=== PATIENT | female | born 1925 | race Caucasian/White ===

== ENCOUNTER 2016-08-20 15:16 | Inpatient (IN) ==
[2016-08-20 15:56] LABS: Basophils % 0.2 % (0.0-0.8); Eosinophils # 0.3 10*3/uL (0.0-0.87); Eosinophils % 2.4 % (0.00-10.9); Hematocrit 39.1 VOL% (35.7-47.0); Hemoglobin 12.3 GM/DL (12.0-16.0); Immature Granulocytes % 0.4 %; Immature Granulocytes Absolute 0.05 #; Lymphocytes # 2.6 10*3/uL (1.4-4.0); Lymphocytes % 20.6 % (21.3-54.2); Mean Corpuscular HGB Conc 31.5 GM/DL (32-36); Mean Corpuscular Hemoglobin 27 PG (27-34); Mean Corpuscular Volume 84.6 FL (87-102); Mean Platelet Volume 9.9 FL (9.6-12.0); Monocytes % 7.5 % (1.7-12.7); Neutrophils # 8.7 10*3/uL (1.4-7.4); Neutrophils % 68.9 % (38.7-73.9); Platelet Count 266 T/CUMM (130-400); Red Blood Count 4.62 MC/CUMM (3.8-5.5); Red Cell Distribution Width 15.6 % (9.3-17.3); White Blood Count 12.6 T/CUMM (4-12)
--- NOTE | 2016-08-20 16:06 | CT Report ---
Referring physician: Rob Sweet Exam: CT brain without contrast Date: 01/01/2017 Comparison: 06/09/2016 Reason: Weakness, head injury with recent fall Technique: Axial images of the head were obtained without the use of contrast. Total DLP was 1012.10 mGy*cm. Findings: The ventricles remain diffusely dilated with no midline displacement. Persistent atrophy and diffuse cerebral hypodensities. Chronic right basal ganglia and left cerebellar infarcts. No acute infarction, mass, extracerebral collection, or skull pathology identified. Vascular calcifications are noted with postoperative findings in the globes. Mastoid air cells and visualized paranasal sinuses are clear. Impression: No acute intracranial abnormality is identified. Persistent atrophy, microvascular disease, and chronic infarcts. The CT exam was performed using one or more of the following dose reduction techniques: Automated exposure control and adjustment of the mA and/or kV according to patient size. PROCEDURE INTERPRETED AT [facility] DEPARTMENT OF RADIOLOGY Final Report Signed by: Dr. Montse Kessler
--- NOTE | 2016-08-20 16:14 | XRay Report ---
XR chest 1V portable Indication: Cough and shortness of breath. Chest one view: Comparison 04/28/2016. Increasing interstitial prominence of the lungs noted, likely edema. No focal infiltrate seen. Chronic scarring left perihilar lung and both lung bases is stable. Heart size remains normal with continued thoracic aortic tortuosity. Calcified atheromatous disease and epidural stimulator are stable as well. Impression: Fluid overload. PROCEDURE INTERPRETED AT [facility] DEPARTMENT OF RADIOLOGY Final Report Signed by: Stuart Spicer M.D.
[2016-08-20 16:24] LABS: Albumin 3.2 G/DL (3.4-5.0); Bilirubin,Direct 0.2 MG/DL (0.0-0.20); Bilirubin,Indirect 0.7 MG/DL (0.0-1.0); Bilirubin,Total 0.9 MG/DL (0.2-1.0); Calcium 8.4 MG/DL (8.5-10.1); Magnesium 2.5 MG/DL (1.8-2.4); Osmolality,Calculated 284.3 MOS/KG (273-304); Potassium 3.4 MMOL/L (3.5-5.1); Total Protein 7.1 G/DL (6.4-8.3); Troponin I Only 0.017 NG/ML (0.00-0.045)
[2016-08-20 16:39] LABS: Apearance,Urine CLOUDY (Clear); Bacteria,Urine Moderate /HPF (Few); Bilirubin,Urine Negative (Negative); Blood, Urine Negative (Negative); Glucose,Urine (UA) Negative (Negative); Ketones,Urine Negative (Negative); Nitrite,Urine Positive (Negative); Protein,Urine Negative; RBC,Urine 6 /HPF (0-4); Squamous Epithelial Cell,Urine Occasional /HPF (0-10); Urine Color Yellow (Yellow); Urine Specific Gravity 1.005 (1.001-1.035); Urine Urobilinogen < 2.0 EU/DL (0.2-1.0); WBC,Urine 950 /HPF (0-6)
[2016-08-20] MEDS ORDERED: cefTRIAXone 1,000 MG in SODIUM CHLORIDE 0.9% 100 ML IV STA (17:23)
[2016-08-20] MEDS ORDERED: FUROSEMIDE 20 MG/2 ML VIAL IV STA (17:23)
--- NOTE | 2016-08-20 17:31 | Emergency Department Note ---
IInes Brittany, am scribing for, and in the presence of, Rob Sweet M.D. 15:35. Micki Urban Howard T, M.D., personally performed the services described in this documentation, ascribed by Jackie Chacon in my presence, and it is both accurate and complete 729 . Arrival - Arrival Chief Complaint: Weakness Stated Complaint: generalized weakness Mode of Arrival: Stretcher Limitations: No Limitations Source: Patient - History of Present Illness HPI Narrative: This is an 89 y/o white female,who presents to the ED by EMS with c/o bilateral leg swelling. She is not able to tell us when this started to happen. She states she is a current resident of [facility] here in [place]. She reports both she and the staff were worried "something was not right with her". She denies any abdomen pain, vomiting, or dysuria. She reports she has had a cough and has been more SOB than normal but denies any CP. She reports she is on O2 Q.H.S. Pt's daughter also reports pt has been confused and generalized weak. Her daughter states pt has not been as ambulatory as she normally is lately. She states she is not on Lasix at this time. Pt has no other complaints/pain in the ED at this time. Pt has a PMHx of CVA, COPD, thyroid disorder, anemia, peripheral neuropathy, and HTN. Pt denies a surgical Hx. Pt denies a family medical Hx. Pt is a former smoker. Onset (ago): unknown Consistency: constant Severity: moderate Allergies/Adverse Reactions: Allergies Allergy/AdvReac Type Severity Reaction Status Date / Time Sulfa (Sulfonamide Allergy Redness of Verified 04/28/16 12:47 Antibiotics) Skin Home Medications: Home Medications Medication Instructions Recorded Confirmed Type Betamethasone Linda 0.1% Cream 1 applic TOP DAILY PRN 04/28/16 06/09/16 History [Valisone 0.1% Cream] Carbidopa/Levodopa 1 each PO DAILY W/SUPPER 04/28/16 06/09/16 History [Carbidopa-Levodopa 25-100 Tab] Cetirizine Tab [ZyrTEC Tab] 10 mg PO DAILY 04/28/16 06/09/16 History Citalopram [CeleXA] 40 mg PO DAILY 04/28/16 06/09/16 History Clotrimazole 1% Cream [Lotrimin 1% 1 applic TOP DAILY PRN 04/28/16 06/09/16 History Cream] Docusate Sodium Cap [Colace Cap] 100 mg PO BID 04/28/16 06/09/16 History Ferrous Sulfate Tab [Feosol 325 mg PO DAILY 04/28/16 06/09/16 History Original Tab] Fluticasone 50 Mcg Nasal [place] 1 spray BOTH NARES BID 04/28/16 06/09/16 History [Flonase Nasal [place]] Gabapentin Cap/Tab [Neurontin 300 mg PO TID 04/28/16 06/09/16 History Cap/Tab] Levothyroxine Tab [Synthroid Tab] 125 mcg PO DAILY@0700 04/28/16 06/09/16 History Meclizine [Antivert] 25 mg PO BID 04/28/16 06/09/16 History Neomyc/Polymyx/Dexam Oph Susp 1 drop BOTH EYES QID 04/28/16 06/09/16 History [Maxitrol Oph Susp] Omeprazole 20 mg PO DAILY 04/28/16 06/09/16 History Oxybutynin Chloride 10 mg PO BID 04/28/16 06/09/16 History Polyethylene Glycol Powder 17 gm PO DAILY 04/28/16 06/09/16 History [Miralax] Potassium Chloride 1 tablet PO BID 04/28/16 06/09/16 History Timolol Maleate [Timolol 0.5% Oph 1 drop BOTH EYES QAM 04/28/16 06/09/16 History Soln] Torsemide Tab [Demadex Tab] 20 mg PO DAILY W/SUPPER 04/28/16 06/09/16 History Trazodone HCl 50 mg PO BEDTIME 04/28/16 06/09/16 History Cyclobenzaprine HCl 10 mg PO BID 06/09/16 06/09/16 History [Cyclobenzaprine HCl] Indomethacin Cap [Indocin Cap] 25 mg PO TID #20 capsule 06/09/16 Rx guaiFENesin/CODEINE [Robitussin AC] 5 - 10 ml PO Q6H PRN 06/09/16 06/09/16 History predniSONE TAB [PredniSONE] 10 mg PO DAILY #10 tablet 06/09/16 Rx Review of System - Review of System 12 point system: reviewed and no additional remarkable complaints except as stated - Review of System Constitutional: Present: weakness (Generalized weaknesss) Cardiovascular: Absent: chest pain, dyspnea on exertion Gastrointestinal: Absent: vomiting, diarrhea Genitourinary female: Absent: dysuria Musculoskeletal: Present: other (Bilateral leg swelling ) Medical,Surgical,& Family Hx - Medical History Cardio: History of: Hypertension Neurology: History of: Cerebrovascular Accident, Peripheral Neuropathy HEENT: History of: HEENT Problems (allergic rhinitis) Endocrine: History of: Thyroid Disorder Respiratory: History of: COPD Hematology: History of: Anemia - Social History Smoking Status: Former smoker Exam Vital Signs: Vital Signs Temperature 98.7 F 08/20/16 15:17 Pulse Rate 87 08/20/16 15:17 Respiratory Rate 18 08/20/16 15:28 Blood Pressure 170/81 08/20/16 15:17 O2 Sat by Pulse Oximetry 90 L 08/20/16 15:17 - General General appearance: alert, in no apparent distress - Head Head exam: Present: atraumatic, normocephalic, normal inspection - Eye Eye exam: Present: normal appearance, PERRL, EOMI. Absent: nystagmus, miosis, mydriasis - ENT ENT exam: Present: normal exam, normal oropharynx, mucous membranes moist, TM's normal bilaterally - Neck Neck exam: Present: normal inspection, full ROM, trachea midline. Absent: tenderness, meningismus, lymphadenopathy, thyromegaly - Chest Chest inspection: Present: normal inspection, symmetric chest wall rise. Absent : tenderness, rash, abscess - Respiratory Respiratory exam: Present: other ("Sounded coarse"). Absent: rales, respiratory distress, rhonchi, stridor, wheezes - Cardiovascular Cardiovascular exam: Present: regular rate, normal rhythm, normal heart sounds. Absent: murmur, rubs, gallop, clicks - Abdominal Exam Abdominal exam: Present: soft, normal bowel sounds. Absent: distention, tenderness, guarding, rebound, rigidity - Rectal Exam Rectal exam: Present: deferred - Extremities Exam Extremities exam: Present: normal capillary refill, other (Significant swelling to the lower extremitites bilaterally) - Back Exam Back exam: Present: normal inspection, full ROM. Absent: tenderness, muscle spasm, rashes - Neurological Exam Neurological exam: Present: alert, oriented X3, CN II-XII intact. Absent: motor sensory deficit - Psychiatric Psychiatric exam: Present: normal affect, normal mood. Absent: depressed, agitated, anxious, flat affect, manic - Skin Skin exam: Present: warm, dry, intact, normal color. Absent: rash, cyanosis, diaphoresis, erythema, pallor, mottled Course Course Narrative: Medical decision making: Discussed with Dr. Carballo who is on-call for family medicine service who accepted the patient on behalf of Dr. Hogan who the patient and the family member state they plan to see going forward. The family desires swing bed placement for some physical therapy however they were informed this is not a guarantee. For now we will start some antibiotics for UTI, some Lasix for swelling in her lower extremities and some pulmonary edema, and further evaluation can be deferred to the medicine service, possibly with cardiology or pulm consult as needed Results - Labs CBC & BMP: 08/20/16 15:36 08/20/16 15:36 - Diagnostic Findings Procedure: Chest x-ray: report reviewed by me (Fluid overload), CT: report reviewed by me (Head CT: No aute intracranial abnormality is identified. Persistnet atrophy, microvascular disease, and chronic infarcts. ) Disposition Clinical Impression: UTI (urinary tract infection), Asthenia, Lower extremity edema, Pulmonary edema , COPD (chronic obstructive pulmonary disease), CHF (congestive heart failure) Case discussed with: patient, patient's family Disposition: Disch/Xfer-[facility] Term [facility] Condition: Stable Time of Disposition: 17:31
[2016-08-20] MEDS ORDERED: ONDANSETRON 4 MG/2 ML VIAL IV PRN (17:32)
[2016-08-20] MEDS ORDERED: ACETAMINOPHEN 325 MG TABLET PO PRN (17:32)
[2016-08-20] MEDS ORDERED: cefTRIAXone 1,000 MG VIAL ONE (17:35)
[2016-08-20] MEDS ORDERED: FUROSEMIDE 40 MG/4 ML VIAL ONE (17:35)
[2016-08-20] MEDS: DOCUSATE SODIUM 100 MG CAPSULE PO SCH (20:06)
[2016-08-21] MEDS: DOCUSATE SODIUM 100 MG CAPSULE PO SCH ×3 (09:08→21:03)
[2016-08-21] MEDS: PANTOPRAZOLE 40 MG TABLET PO SCH (09:08)
[2016-08-21] MEDS: DESITIN 4OZ/NYSTATIN 15 GRAM MIXTURE PASTE TOP SCH ×2 (13:38→22:38)
[2016-08-21] MEDS: NYSTATIN POWDER 15 GM BOTTLE TOP SCH ×2 (13:38→22:38)
--- NOTE | 2016-08-21 18:14 | Internal Med History&Physical ---
Assessment and Plan (1) COPD (chronic obstructive pulmonary disease) Status: Chronic Current Visit: Yes (2) Lower extremity edema Status: Chronic Current Visit: Yes (3) Pulmonary edema Status: Acute Current Visit: Yes Qualifiers: Chronicity: acute Qualified Code(s): J81.0 - Acute pulmonary edema (4) UTI (urinary tract infection) Status: Acute Current Visit: Yes Qualifiers: Hematuria presence: without hematuria History of Present Illness Chief complaint: malaise; fatigue History of present illness: Ms. Castillo is a 89 year old female patient of Dr. Cottrell with history of stroke , HTN, COPD, history of CHF episode, OA, dyslipidemia, who presented to ER with acute UTI and lower extremity wound sustained after a fall two weeks ago. She has had peripheral lymphedema over last several weeks. Dr. Robison will be consulted for wound care. Home Medications Medication Instructions Recorded Confirmed Type Betamethasone Linda 0.1% Cream 1 applic TOP DAILY PRN 04/28/16 06/09/16 History [Valisone 0.1% Cream] Carbidopa/Levodopa 1 each PO DAILY W/SUPPER 04/28/16 06/09/16 History [Carbidopa-Levodopa 25-100 Tab] Cetirizine Tab [ZyrTEC Tab] 10 mg PO DAILY 04/28/16 06/09/16 History Citalopram [CeleXA] 40 mg PO DAILY 04/28/16 06/09/16 History Clotrimazole 1% Cream [Lotrimin 1% 1 applic TOP DAILY PRN 04/28/16 06/09/16 History Cream] Docusate Sodium Cap [Colace Cap] 100 mg PO BID 04/28/16 06/09/16 History Ferrous Sulfate Tab [Feosol 325 mg PO DAILY 04/28/16 06/09/16 History Original Tab] Fluticasone 50 Mcg Nasal [place] 1 spray BOTH NARES BID 04/28/16 06/09/16 History [Flonase Nasal [place]] Gabapentin Cap/Tab [Neurontin 300 mg PO TID 04/28/16 06/09/16 History Cap/Tab] Levothyroxine Tab [Synthroid Tab] 125 mcg PO DAILY@0700 04/28/16 06/09/16 History Meclizine [Antivert] 25 mg PO BID 04/28/16 06/09/16 History Neomyc/Polymyx/Dexam Oph Susp 1 drop BOTH EYES QID 04/28/16 06/09/16 History [Maxitrol Oph Susp] Omeprazole 20 mg PO DAILY 04/28/16 06/09/16 History Oxybutynin Chloride 10 mg PO BID 04/28/16 06/09/16 History Polyethylene Glycol Powder 17 gm PO DAILY 04/28/16 06/09/16 History [Miralax] Potassium Chloride 1 tablet PO BID 04/28/16 06/09/16 History Timolol Maleate [Timolol 0.5% Oph 1 drop BOTH EYES QAM 04/28/16 06/09/16 History Soln] Torsemide Tab [Demadex Tab] 20 mg PO DAILY W/SUPPER 04/28/16 06/09/16 History Trazodone HCl 50 mg PO BEDTIME 04/28/16 06/09/16 History Cyclobenzaprine HCl 10 mg PO BID 06/09/16 06/09/16 History [Cyclobenzaprine HCl] Indomethacin Cap [Indocin Cap] 25 mg PO TID #20 capsule 06/09/16 Rx guaiFENesin/CODEINE [Robitussin AC] 5 - 10 ml PO Q6H PRN 06/09/16 06/09/16 History predniSONE TAB [PredniSONE] 10 mg PO DAILY #10 tablet 06/09/16 Rx Allergies Allergy/AdvReac Type Severity Reaction Status Date / Time Sulfa (Sulfonamide Allergy Redness of Verified 04/28/16 12:47 Antibiotics) Skin Medical,Surgical,& Family Hx - Medical History Cardio: History of: Cerebrovascular Disease, Hypertension Neurology: History of: Cerebrovascular Accident, Peripheral Neuropathy HEENT: History of: HEENT Problems (allergic rhinitis) Endocrine: History of: Thyroid Disorder Respiratory: History of: COPD Genitourinary: History of: Recurring Urinary Tract Infections Musculoskeletal: History of: Musculoskeletal Problems (osteoarthritis) Hematology: History of: Anemia - Surgical History Surgical History: noncontributory (no surgical history) - Family History Family History: noncontributory (unknown family history) - Social History Smoking Status: Former smoker Frequency of Alcohol Use: None Type of Drug Use: None Marital Status: Lives With:: Children Functional capacity: uses cane/walker - Constitutional Constitutional: Present: fatigue, frequent falls, lethargy, malaise, weakness - Musculoskeletal Musculoskeletal: Present: muscle weakness - Neurological Neurological: Present: confusion (with UTI) Exam - Constitutional Vitals: Period Temp Pulse Resp BP Sys/Collins Pulse Ox Last 24 Hr 97.1 F-98.5 F 74-79 18-18 154-163/67-82 91-96 General appearance: no acute distress - Head Head exam: Present: normocephalic - Eye Eye exam: Present: EOMI - Respiratory Respiratory exam: Present: clear to auscultation bilaterally - Cardiovascular Cardiovascular exam: Present: regular rate and rhythm - GI/Abdominal GI/Abdominal exam: Present: normal bowel sounds, soft. Absent: tenderness - Extremities Exam Extremities exam: Present: edema - Neurological Exam Neurological exam: Present: alert, CN II-XII intact - Psychiatric Psychiatric exam: Present: normal mood - Skin Skin exam: Present: warm, dry Results - Labs CBC & BMP: 08/20/16 15:36 08/20/16 15:36 - Diagnostic Findings Procedure: Chest x-ray: report reviewed by me, CT: report reviewed by me
[2016-08-21] MEDS ORDERED: SODIUM CHLORIDE 0.45% 1,000 ML IV SCH (18:30)
[2016-08-21] MEDS ORDERED: POTASSIUM CHLORIDE 20 MEQ TABLET PO ONE (18:30)
[2016-08-21] MEDS: ALBUTEROL/IPRATROPIUM 3 ML NEB RESP TX SCH (19:14)
[2016-08-21] MEDS: PIPERACILLIN/TAZOBACTAM 3,375 MG in SODIUM CHLORIDE 0.9% 100 ML IV SCH (19:51)
[2016-08-21 20:43] LABS: Apearance,Urine Slightly Hazy (Clear); Bacteria,Urine Occasional /HPF (Few); Bilirubin,Urine Negative (Negative); Blood, Urine Negative (Negative); Glucose,Urine (UA) Negative (Negative); Ketones,Urine Negative (Negative); Nitrite,Urine Negative (Negative); Protein,Urine Negative; RBC,Urine 1 /HPF (0-4); Squamous Epithelial Cell,Urine Occasional /HPF (0-10); Urine Color Yellow (Yellow); Urine Specific Gravity 1.009 (1.001-1.035); Urine Urobilinogen < 2.0 EU/DL (0.2-1.0); WBC,Urine 42 /HPF (0-6)
[2016-08-21] MEDS ORDERED: cloNIDine 0.1 MG TABLET PO SCH (21:00)
[2016-08-21] MEDS: traZODone 50 MG TABLET PO SCH (21:03)
[2016-08-21] MEDS: MECLIZINE 25 MG TABLET PO SCH (21:03)
[2016-08-21] MEDS: FLUTICASONE 50 MCG NASAL SPRAY 16 GM BOTTLE BOTH NARES SCH (22:38)
[2016-08-22] MEDS: ALBUTEROL/IPRATROPIUM 3 ML NEB RESP TX SCH ×4 (00:10→20:11)
[2016-08-22] MEDS: PIPERACILLIN/TAZOBACTAM 3,375 MG in SODIUM CHLORIDE 0.9% 100 ML IV SCH ×3 (03:00→19:23)
[2016-08-22 04:41] LABS: Basophils % 0.2 % (0.0-0.8); Eosinophils # 0.2 10*3/uL (0.0-0.87); Eosinophils % 2.4 % (0.00-10.9); Hemoglobin 11.3 GM/DL (12.0-16.0); Immature Granulocytes % 0.5 %; Immature Granulocytes Absolute 0.05 #; Lymphocytes # 2.2 10*3/uL (1.4-4.0); Lymphocytes % 22.1 % (21.3-54.2); Mean Corpuscular HGB Conc 30.5 GM/DL (32-36); Mean Corpuscular Hemoglobin 26 PG (27-34); Mean Corpuscular Volume 85.1 FL (87-102); Mean Platelet Volume 9.7 FL (9.6-12.0); Monocytes # 0.8 10*3/uL (0.11-0.8); Monocytes % 7.9 % (1.7-12.7); Neutrophils # 6.6 10*3/uL (1.4-7.4); Neutrophils % 66.9 % (38.7-73.9); Platelet Count 246 T/CUMM (130-400); Red Blood Count 4.35 MC/CUMM (3.8-5.5); Red Cell Distribution Width 15.3 % (9.3-17.3); White Blood Count 9.9 T/CUMM (4-12)
[2016-08-22 05:09] LABS: Albumin 2.6 G/DL (3.4-5.0); Bilirubin,Total 0.4 MG/DL (0.2-1.0); Calcium 8.2 MG/DL (8.5-10.1); Potassium 3.2 MMOL/L (3.5-5.1); Total Protein 6.1 G/DL (6.4-8.3)
--- NOTE | 2016-08-22 08:01 | General Surgery Consult Note ---
Assessment and Plan - Time spent with patient Time spent with patient: Less than 30 minutes (1) Traumatic abrasion Status: Acute Assessment and plan: Impression: 1. Traumatic wound of the left leg with hematoma 2. Urinary tract infection. Plan: Debridement with drainage of hematoma Current Visit: Yes History of Present Illness Chief complaint: Traumatic injury to the left leg with wound and hematoma History of present illness: Ms. Castillo is a 89 year old female white who apparently fell and sustained a traumatic wound to the left leg with a large open wound with some necrotic tissue around the edges of it. She came in for urinary tract infection although she is complained about some swelling in erythematous changes around this wound on her leg. There is some evidence that there is probably a little fluid collection or hematoma underneath this traumatic wound at this time. Will consider taking her to surgery to try to debride this little big clean it up and possibly evacuate a little hematoma that underneath there. Home Medications Medication Instructions Recorded Confirmed Type Betamethasone Linda 0.1% Cream 1 applic TOP DAILY PRN 04/28/16 06/09/16 History [Valisone 0.1% Cream] Carbidopa/Levodopa 1 each PO DAILY W/SUPPER 04/28/16 06/09/16 History [Carbidopa-Levodopa 25-100 Tab] Cetirizine Tab [ZyrTEC Tab] 10 mg PO DAILY 04/28/16 06/09/16 History Citalopram [CeleXA] 40 mg PO DAILY 04/28/16 06/09/16 History Clotrimazole 1% Cream [Lotrimin 1% 1 applic TOP DAILY PRN 04/28/16 06/09/16 History Cream] Docusate Sodium Cap [Colace Cap] 100 mg PO BID 04/28/16 06/09/16 History Ferrous Sulfate Tab [Feosol 325 mg PO DAILY 04/28/16 06/09/16 History Original Tab] Fluticasone 50 Mcg Nasal [place] 1 spray BOTH NARES BID 04/28/16 06/09/16 History [Flonase Nasal [place]] Gabapentin Cap/Tab [Neurontin 300 mg PO TID 04/28/16 06/09/16 History Cap/Tab] Levothyroxine Tab [Synthroid Tab] 125 mcg PO DAILY@0700 04/28/16 06/09/16 History Meclizine [Antivert] 25 mg PO BID 04/28/16 06/09/16 History Neomyc/Polymyx/Dexam Oph Susp 1 drop BOTH EYES QID 04/28/16 06/09/16 History [Maxitrol Oph Susp] Omeprazole 20 mg PO DAILY 04/28/16 06/09/16 History Oxybutynin Chloride 10 mg PO BID 04/28/16 06/09/16 History Polyethylene Glycol Powder 17 gm PO DAILY 04/28/16 06/09/16 History [Miralax] Potassium Chloride 1 tablet PO BID 04/28/16 06/09/16 History Timolol Maleate [Timolol 0.5% Oph 1 drop BOTH EYES QAM 04/28/16 06/09/16 History Soln] Torsemide Tab [Demadex Tab] 20 mg PO DAILY W/SUPPER 04/28/16 06/09/16 History Trazodone HCl 50 mg PO BEDTIME 04/28/16 06/09/16 History Cyclobenzaprine HCl 10 mg PO BID 06/09/16 06/09/16 History [Cyclobenzaprine HCl] Indomethacin Cap [Indocin Cap] 25 mg PO TID #20 capsule 06/09/16 Rx guaiFENesin/CODEINE [Robitussin AC] 5 - 10 ml PO Q6H PRN 06/09/16 06/09/16 History predniSONE TAB [PredniSONE] 10 mg PO DAILY #10 tablet 06/09/16 Rx Allergies Allergy/AdvReac Type Severity Reaction Status Date / Time Sulfa (Sulfonamide Allergy Redness of Verified 04/28/16 12:47 Antibiotics) Skin Medical,Surgical,& Family Hx - Medical History Cardio: History of: Cerebrovascular Disease, Hypertension Neurology: History of: Cerebrovascular Accident, Peripheral Neuropathy HEENT: History of: HEENT Problems (allergic rhinitis) Endocrine: History of: Thyroid Disorder Respiratory: History of: COPD Genitourinary: History of: Recurring Urinary Tract Infections Musculoskeletal: History of: Musculoskeletal Problems (osteoarthritis) Hematology: History of: Anemia - Social History Smoking Status: Former smoker Frequency of Alcohol Use: None Type of Drug Use: None 12 point system: reviewed and no additional remarkable complaints except as stated Exam - Constitutional Vitals: Period Temp Pulse Resp BP Sys/Collins Pulse Ox Last 24 Hr 97.1 F-98.2 F 75-81 16-20 148-163/72-85 93-99 General appearance: mild distress - Head Head exam: Present: normal inspection - ENT ENT exam: Present: normal exam - Neck Neck exam: Present: normal inspection - Respiratory Respiratory exam: Present: rales - Cardiovascular Cardiovascular exam: Present: RRR - GI/Abdominal GI/Abdominal exam: Present: normal bowel sounds, soft - Extremities Exam Extremities exam: Present: other (Mild edema of the left lower extremity with a wound on the anterior lateral aspect in the midportion that has necrotic fatty tissue and skin around the edges. Just medial to the wound is a swollen area of the little bit of erythema in this region.) - Back Exam Back exam: Present: normal inspection - Neurological Exam Neurological exam: Present: alert, oriented X3, CN II-XII intact - Skin Skin exam: Present: normal color, warm, dry Quality Measures - VTE Contraindication to Pharmacological VTE Prophylaxis: High Risk of Bleeding Results - Labs CBC & BMP: 08/22/16 04:25 08/22/16 04:25 Lab Results: I have reviewed the past 24 hour labs
[2016-08-22 08:33] LABS: PT Patient Result 10.9 SECS
[2016-08-22] MEDS ORDERED: amLODIPine 5 MG TABLET PO SCH (09:00)
--- NOTE | 2016-08-22 09:07 | EKG Report ---
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
[2016-08-22] MEDS: POTASSIUM CHLORIDE 20 MEQ TABLET PO SCH (09:18)
[2016-08-22] MEDS ORDERED: POTASSIUM CHLORIDE 20 MEQ TABLET PO ONE (10:39)
[2016-08-22] MEDS ORDERED: amLODIPine 10 MG TABLET PO SCH (10:42)
[2016-08-22] MEDS ORDERED: BUPIVACAINE MPF 0.25% /EPI 30 ML VIAL ONE (11:34)
[2016-08-22] MEDS ORDERED: BUPIVACAINE 0.25% 50 ML VIAL ONE (11:41)
[2016-08-22] MEDS ORDERED: HYDROmorphone 2 MG/1 ML VIAL IV PRN (12:07)
[2016-08-22] MEDS ORDERED: oxyCODONE/ACETAMINOPHEN 5-325 MG TABLET PO PRN (12:07)
--- NOTE | 2016-08-22 12:07 | Operative Note ---
Date of procedure: 08/22/16 Pre-op diagnosis: Traumatic wound of the left leg with hematoma Post-op diagnosis: same Procedure: Operative note: Preoperative diagnosis: Traumatic wound of the left leg with hematoma Postoperative diagnosis: Same Procedure: Excisional debridement of skin and necrotic subcutaneous tissue with evacuation of hematoma Surgeon Dr. Robison Anesthesia managed anesthetic care with local Brief history: 89-year-old white female who sustained a traumatic injury to the left leg several weeks ago now has an open wound with a hematoma at this time. Good bit of necrotic tissue over the surface and around the edges that we need to get cleaned up and see if we can evacuate the hematoma. Procedure: With patient in supine position prepped and draped in a sterile fashion timeout and antibiotics completed approaches area of the wound to the left leg. There is swelling on the medial aspect of the wound over the pretibial area with a good bit of necrotic tissue and necrotic fatty tissue on the base of the wound. The preop wound size is 9 x 2 cm x 0.1 cm At this point elected to infiltrate with a local anesthetic that I cleaned up around the edges of it getting some of the necrotic's material off the surface of the wound and the skin at this time. I then took scissors and debride the skin edge especially on the medial aspect and debrided this necrotic fatty tissue in the base carefully debrided that down then took a knife to some further dark necrotic tissue on the base of this wound to get it as clean as I could possibly get it. Once I had that cleaned that I was able to dissect underneath this area towards the medial aspect with a hematoma was at. Initially did get a lot out then when I applied pressure to it I was able to evacuate the hematoma almost completely. At that point I washed and irrigated and irrigated this wound out to get as clean as possible. Concerned that that fluid may build back up underneath that flap area elected to place 1/4 inch [place] drain and sutured down with 3-0 nylon just to have some drainage out of that cavity where the hematoma was at. With that completed then I went ahead and dressed it some SAF-Gel Mepitel and Aquacel with a bulky dressing. Patient was then taken recovery room. Post debridement wound measures 9.5 x 2.5 x 0.2 cm Estimated blood loss 5 cc Sponge count correct 2 Drains 1/4 inch [place] Complications none Condition stable satisfactory Anesthesia: MAC, local (0.25% Marcaine plain mixed [id number] 1% Xylocaine plain) Surgeon / Physician: Lg Robison Estimated blood loss: other (5 cc) Specimens: other (Cultures) Condition: stable Disposition: floor Results - Labs CBC & BMP: 08/22/16 04:25 08/22/16 04:25 Discharge Plan - Discharge Medications No Action Clotrimazole 1% Cream [Lotrimin 1% Cream] 1 applic TOP DAILY PRN PRN Reason: ANTIFUNGAL Betamethasone Linda 0.1% Cream [Valisone 0.1% Cream] 1 applic TOP DAILY PRN PRN Reason: Itching Trazodone HCl 50 mg PO BEDTIME Torsemide Tab [Demadex Tab] 20 mg PO DAILY W/SUPPER Potassium Chloride 1 tablet PO BID Polyethylene Glycol Powder [Miralax] 17 gm PO DAILY Oxybutynin Chloride 10 mg PO BID Neomyc/Polymyx/Dexam Oph Susp [Maxitrol Oph Susp] 1 drop BOTH EYES QID Meclizine [Antivert] 25 mg PO BID Levothyroxine Tab [Synthroid Tab] 125 mcg PO DAILY@0700 Gabapentin Cap/Tab [Neurontin Cap/Tab] 300 mg PO TID Ferrous Sulfate Tab [Feosol Original Tab] 325 mg PO DAILY Docusate Sodium Cap [Colace Cap] 100 mg PO BID Citalopram [CeleXA] 40 mg PO DAILY Cetirizine Tab [ZyrTEC Tab] 10 mg PO DAILY Carbidopa/Levodopa [Carbidopa-Levodopa 25-100 Tab] 1 each PO DAILY W/SUPPER guaiFENesin/CODEINE [Robitussin AC] 5 - 10 ml PO Q6H PRN PRN Reason: Cough Timolol Maleate [Timolol 0.5% Oph Soln] 1 drop BOTH EYES QAM Omeprazole 20 mg PO DAILY Fluticasone 50 Mcg Nasal [place] [Flonase Nasal [place]] 1 spray BOTH NARES BID Cyclobenzaprine HCl [Cyclobenzaprine HCl] 10 mg PO BID Indomethacin Cap [Indocin Cap] 25 mg PO TID #20 capsule predniSONE TAB [PredniSONE] 10 mg PO DAILY #10 tablet - Follow Up or Referral - Forms/Instructions
--- NOTE | 2016-08-22 12:11 | Anesthesia Post-Op ---
Anesthesia Post OP - Post Ansesthetic Evaluation Patient seen in post op: Yes Resp: within normal limits CV: within normal limits Mental: within normal limits Temp: within normal limits [id number]: within normal limits Nausea and Vomiting: within normal limits Pain: within normal limits
[2016-08-22] MEDS ORDERED: fentaNYL 100 MCG/2 ML VIAL ONE (12:18)
[2016-08-22] MEDS ORDERED: MIDAZOLAM 2 MG/2 ML VIAL ONE (12:18)
[2016-08-22] MEDS: LEVOTHYROXINE 125 MCG TABLET PO SCH (14:35)
[2016-08-22] MEDS: CITALOPRAM 40 MG TABLET PO SCH (14:36)
[2016-08-22] MEDS: POLYETHYLENE GLYCOL POWDER 17 GM PACK PO SCH (14:36)
[2016-08-22] MEDS: CETIRIZINE 10 MG TABLET PO SCH (14:37)
[2016-08-22] MEDS: DESITIN 4OZ/NYSTATIN 15 GRAM MIXTURE PASTE TOP SCH ×2 (14:37→21:28)
[2016-08-22] MEDS: PANTOPRAZOLE 40 MG TABLET PO SCH (14:37)
[2016-08-22] MEDS: CALCIUM (CITRATE) 200 MG TABLET PO SCH (14:44)
[2016-08-22] MEDS: DOCUSATE SODIUM 100 MG CAPSULE PO SCH ×4 (14:44→21:23)
[2016-08-22] MEDS: FLUTICASONE 50 MCG NASAL SPRAY 16 GM BOTTLE BOTH NARES SCH ×2 (14:45→21:30)
[2016-08-22] MEDS: MECLIZINE 25 MG TABLET PO SCH ×2 (14:45→21:23)
[2016-08-22] MEDS: NYSTATIN POWDER 15 GM BOTTLE TOP SCH ×2 (14:46→21:30)
[2016-08-22] MEDS: TIMOLOL 0.5% OPH SOLN 5 ML BOTTLE BOTH EYES SCH (16:58)
[2016-08-22] MEDS: TORSEMIDE 20 MG TABLET PO SCH (17:16)
[2016-08-22] MEDS: CARBIDOPA/LEVODOPA 25-100 MG TABLET PO SCH (17:17)
--- NOTE | 2016-08-22 21:07 | Internal Med Progress Note ---
Assessment and Plan (1) COPD (chronic obstructive pulmonary disease) Status: Chronic Current Visit: Yes (2) Lower extremity edema Status: Chronic Current Visit: Yes (3) Pulmonary edema Status: Acute Current Visit: Yes Qualifiers: Chronicity: acute Qualified Code(s): J81.0 - Acute pulmonary edema (4) UTI (urinary tract infection) Status: Acute Current Visit: Yes Qualifiers: Hematuria presence: without hematuria (5) Traumatic abrasion Problem details: surgical debridement Status: Acute Current Visit: Yes Internal Medicine - PN: Subj Interval history: Ms. Castillo is a 89 year old female patient of Dr. Cottrell with history of stroke , HTN, COPD, history of CHF episode, OA, dyslipidemia, who presented to ER with acute UTI and lower extremity wound sustained after a fall two weeks ago. She has had peripheral lymphedema over last several weeks. Dr. Robison will be consulted for wound care. , she had surgical debridement of lower extremity earlier today, and tolerated the procedure. Anticipate a quicker recovery at this point. Exam (Progress Note) - Constitutional Vitals: Period Temp Pulse Resp BP Sys/Collins Pulse Ox Last 24 Hr 97.4 F-98.7 F 73-87 16-20 123-168/56-95 93-100 Exam: General appearance: no acute distress - Respiratory Respiratory exam: Present: clear to auscultation bilaterally - Cardiovascular Cardiovascular exam: Present: regular rate and rhythm - GI/Abdominal GI/Abdominal exam: Present: normal bowel sounds, soft. Absent: tenderness - Extremities Exam Extremities exam: Present: edema - Neurological Exam Neurological exam: Present: alert, CN II-XII intact - Psychiatric Psychiatric exam: Present: normal mood - Skin Skin exam: Present: warm, dry; lower extremity surgical bandages in place Results - Labs CBC & BMP: 08/22/16 04:25 08/22/16 04:25 Quality Measures - VTE Contraindication to Pharmacological VTE Prophylaxis: High Risk of Bleeding
[2016-08-22] MEDS: traZODone 50 MG TABLET PO SCH (21:23)
[2016-08-22] MEDS: cloNIDine 0.1 MG TABLET PO SCH (21:23)
[2016-08-22] MEDS: POTASSIUM CHLORIDE INJ 40 MEQ in SODIUM CHLORIDE 0.45% 1,000 ML IV SCH ×2 (23:41→23:42)
[2016-08-23] MEDS: ALBUTEROL/IPRATROPIUM 3 ML NEB RESP TX SCH ×4 (01:17→20:13)
[2016-08-23] MEDS: PIPERACILLIN/TAZOBACTAM 3,375 MG in SODIUM CHLORIDE 0.9% 100 ML IV SCH ×2 (02:49→11:10)
[2016-08-23] MEDS: LEVOTHYROXINE 125 MCG TABLET PO SCH (06:35)
[2016-08-23 08:16] LABS: Calcium 8.6 MG/DL (8.5-10.1); Osmolality,Calculated 290.7 MOS/KG (273-304); Potassium 3.7 MMOL/L (3.5-5.1)
--- NOTE | 2016-08-23 08:16 | General Surgery Progress Note ---
Assessment and Plan - Time spent with patient Time spent with patient: Less than 30 minutes (1) Hematoma of left lower extremity Status: Acute Assessment and plan: o08/23/16 Stable post op evacuation of left lower leg hematoma. We will begin dressing changes today. If she can tolerate PT, it's OK to begin getting her up and having her do whatever she's able-certainly no restrictions on weight bearing, etc. We will await final cultures and look at her care options. Leaving the tae drain for now. Current Visit: Yes Subjective Patient reports: Present: feels better, other (Mild post op pain.) Exam - Constitutional Vitals: Period Temp Pulse Resp BP Sys/Collins Pulse Ox Last 24 Hr 96.6 F-98.7 F 66-87 16-20 123-168/56-95 92-100 General appearance: no acute distress, other (Awake, smiling, in no acute distress. She says she is 'a little bit uncomfortable but not too bad.' She is asking if she can 'get up and walk.') - Cardiovascular Cardiovascular exam: Present: RRR - Extremities Exam Extremities exam: Present: other (LLE surgical dressing in place without drainage strike through. Toes warm and pink with good capillary refill. ) - Neurological Exam Neurological exam: Present: alert Results - Labs CBC & BMP: 08/22/16 04:25 08/22/16 04:25 Lab Results: I have reviewed the past 24 hour labs Quality Measures - VTE Contraindication to Pharmacological VTE Prophylaxis: High Risk of Bleeding
[2016-08-23] MEDS: FLUTICASONE 50 MCG NASAL SPRAY 16 GM BOTTLE BOTH NARES SCH ×2 (08:57→21:27)
[2016-08-23] MEDS: CITALOPRAM 40 MG TABLET PO SCH (08:58)
[2016-08-23] MEDS: POLYETHYLENE GLYCOL POWDER 17 GM PACK PO SCH (08:58)
[2016-08-23] MEDS: CALCIUM (CITRATE) 200 MG TABLET PO SCH (08:58)
[2016-08-23] MEDS: PANTOPRAZOLE 40 MG TABLET PO SCH (08:59)
[2016-08-23] MEDS: DOCUSATE SODIUM 100 MG CAPSULE PO SCH ×3 (08:59→21:23)
[2016-08-23] MEDS: DESITIN 4OZ/NYSTATIN 15 GRAM MIXTURE PASTE TOP SCH ×2 (09:00→21:28)
[2016-08-23] MEDS: CETIRIZINE 10 MG TABLET PO SCH (09:00)
[2016-08-23] MEDS: MECLIZINE 25 MG TABLET PO SCH (09:00)
[2016-08-23] MEDS: TIMOLOL 0.5% OPH SOLN 5 ML BOTTLE BOTH EYES SCH (09:00)
[2016-08-23] MEDS: NYSTATIN POWDER 15 GM BOTTLE TOP SCH ×2 (09:00→21:28)
[2016-08-23] MEDS: cloNIDine 0.1 MG TABLET PO SCH (09:00)
[2016-08-23] MEDS: POTASSIUM CHLORIDE 20 MEQ TABLET PO SCH (09:01)
[2016-08-23] MEDS ORDERED: SKIN HEALING OINT (AQUAPHOR) 50 GM TUBE TOP PRN (10:01)
[2016-08-23] MEDS ORDERED: BISMUTH SUBSALICYLATE 30 ML/524 MG 240 ML/BOTTLE PO ONE (15:06)
--- NOTE | 2016-08-23 15:28 | Internal Med Progress Note ---
Assessment and Plan (1) COPD (chronic obstructive pulmonary disease) Status: Chronic Current Visit: Yes (2) Lower extremity edema Status: Chronic Current Visit: Yes (3) Pulmonary edema Status: Acute Current Visit: Yes Qualifiers: Chronicity: acute Qualified Code(s): J81.0 - Acute pulmonary edema (4) UTI (urinary tract infection) Status: Acute Current Visit: Yes Qualifiers: Hematuria presence: without hematuria (5) Traumatic abrasion Problem details: surgical debridement Status: Acute Current Visit: Yes Internal Medicine - PN: Subj Interval history: Ms. Castillo is a 89 year old female patient of Dr. Cottrell with history of stroke , HTN, COPD, history of CHF episode, OA, dyslipidemia, who presented to ER with acute UTI and lower extremity wound sustained after a fall two weeks ago. She has had peripheral lymphedema over last several weeks. Dr. Robison will be consulted for wound care. , she had surgical debridement of lower extremity earlier today, and tolerated the procedure. Anticipate a quicker recovery at this point. Friday, she had a bad night last night with gas pain, according to the daughter. She has been having loose stools. Laying on her left side gave relief. She may be having GI distress from Zosyn, and it will be discontinued. Exam (Progress Note) - Constitutional Vitals: Period Temp Pulse Resp BP Sys/Collins Pulse Ox Last 24 Hr 96.6 F-98.6 F 66-87 17-20 137-165/67-77 92-98 Exam: General appearance: no acute distress; appears fatigued - Respiratory Respiratory exam: Present: clear to auscultation bilaterally - Cardiovascular Cardiovascular exam: Present: regular rate and rhythm - GI/Abdominal GI/Abdominal exam: Present: normal bowel sounds, soft - Extremities Exam Extremities exam: Present: edema - Neurological Exam Neurological exam: Present: alert, CN II-XII intact - Psychiatric Psychiatric exam: Present: normal mood - Skin Skin exam: Present: warm, dry; lower extremity surgical bandages in place Results - Labs CBC & BMP: 08/22/16 04:25 08/23/16 07:23 Quality Measures - VTE Contraindication to Pharmacological VTE Prophylaxis: High Risk of Bleeding
[2016-08-23] MEDS: TORSEMIDE 20 MG TABLET PO SCH (16:50)
[2016-08-23] MEDS: CARBIDOPA/LEVODOPA 25-100 MG TABLET PO SCH (16:50)
[2016-08-23] MEDS: POTASSIUM CHLORIDE INJ 40 MEQ in SODIUM CHLORIDE 0.45% 1,000 ML IV SCH (21:27)
[2016-08-24] MEDS: ALBUTEROL/IPRATROPIUM 3 ML NEB RESP TX SCH ×4 (00:01→20:04)
[2016-08-24] MEDS: DOCUSATE SODIUM 100 MG CAPSULE PO SCH ×3 (00:15→21:16)
[2016-08-24] MEDS: cloNIDine 0.1 MG TABLET PO SCH ×3 (00:15→21:16)
[2016-08-24] MEDS: MECLIZINE 25 MG TABLET PO SCH ×3 (00:15→21:15)
[2016-08-24] MEDS: traZODone 50 MG TABLET PO SCH ×2 (00:16→21:16)
[2016-08-24] MEDS: LEVOTHYROXINE 125 MCG TABLET PO SCH (08:57)
[2016-08-24] MEDS: POTASSIUM CHLORIDE INJ 40 MEQ in SODIUM CHLORIDE 0.45% 1,000 ML IV SCH ×2 (08:58→23:59)
[2016-08-24] MEDS: CITALOPRAM 40 MG TABLET PO SCH (08:59)
[2016-08-24] MEDS: CALCIUM (CITRATE) 200 MG TABLET PO SCH (08:59)
[2016-08-24] MEDS: POTASSIUM CHLORIDE 20 MEQ TABLET PO SCH (09:00)
[2016-08-24] MEDS: NYSTATIN POWDER 15 GM BOTTLE TOP SCH ×2 (09:00→20:16)
[2016-08-24] MEDS: POLYETHYLENE GLYCOL POWDER 17 GM PACK PO SCH (09:00)
[2016-08-24] MEDS: FLUTICASONE 50 MCG NASAL SPRAY 16 GM BOTTLE BOTH NARES SCH ×2 (09:00→20:16)
[2016-08-24] MEDS: PANTOPRAZOLE 40 MG TABLET PO SCH (09:00)
[2016-08-24] MEDS: CETIRIZINE 10 MG TABLET PO SCH (09:01)
[2016-08-24] MEDS: DESITIN 4OZ/NYSTATIN 15 GRAM MIXTURE PASTE TOP SCH ×2 (09:01→20:16)
[2016-08-24] MEDS: TIMOLOL 0.5% OPH SOLN 5 ML BOTTLE BOTH EYES SCH (09:01)
--- NOTE | 2016-08-24 14:16 | Event Note ---
Status post evacuation of hematoma and debridement. Patient is afebrile vital signs stable. Wound appears clean with some mild exudate present. We will continue local wound care.
--- NOTE | 2016-08-24 15:56 | Internal Med Progress Note ---
Assessment and Plan (1) COPD (chronic obstructive pulmonary disease) Status: Chronic Current Visit: Yes (2) Lower extremity edema Status: Chronic Current Visit: Yes (3) Pulmonary edema Status: Acute Current Visit: Yes Qualifiers: Chronicity: acute Qualified Code(s): J81.0 - Acute pulmonary edema (4) UTI (urinary tract infection) Status: Acute Current Visit: Yes Qualifiers: Hematuria presence: without hematuria (5) Traumatic abrasion Problem details: surgical debridement Status: Acute Current Visit: Yes Internal Medicine - PN: Subj Interval history: Ms. Castillo is a 89 year old female patient of Dr. Cottrell with history of stroke , HTN, COPD, history of CHF episode, OA, dyslipidemia, who presented to ER with acute UTI and lower extremity wound sustained after a fall two weeks ago. She has had peripheral lymphedema over last several weeks. Dr. Robison will be consulted for wound care. , she had surgical debridement of lower extremity earlier today, and tolerated the procedure. Anticipate a quicker recovery at this point. Friday, she had a bad night last night with gas pain, according to the daughter. She has been having loose stools. Laying on her left side gave relief. She may be having GI distress from Zosyn, and it will be discontinued. She had owning last night, but seems to be calm at this time on rounds. Appears stable. Exam (Progress Note) - Constitutional Vitals: Period Temp Pulse Resp BP Sys/Collins Pulse Ox Last 24 Hr 97.1 F-99 F 69-78 16-20 98-157/46-84 86-99 Exam: General appearance: no acute distress; appears better - Respiratory Respiratory exam: Present: clear to auscultation bilaterally - Cardiovascular Cardiovascular exam: Present: regular rate and rhythm - GI/Abdominal GI/Abdominal exam: Present: normal bowel sounds, soft - Extremities Exam Extremities exam: Present: edema - Neurological Exam Neurological exam: Present: alert, CN II-XII intact - Psychiatric Psychiatric exam: Present: normal mood - Skin Skin exam: Present: warm, dry; lower extremity surgical bandages in place Results - Labs CBC & BMP: 08/25/16 05:51 08/25/16 05:51 Quality Measures - VTE Contraindication to Pharmacological VTE Prophylaxis: High Risk of Bleeding
[2016-08-24] MEDS: TORSEMIDE 20 MG TABLET PO SCH (18:28)
[2016-08-24] MEDS: CARBIDOPA/LEVODOPA 25-100 MG TABLET PO SCH (18:28)
[2016-08-25] MEDS: ALBUTEROL/IPRATROPIUM 3 ML NEB RESP TX SCH ×5 (01:15→19:39)
[2016-08-25 07:05] LABS: Basophils % 0.3 % (0.0-0.8); Eosinophils # 0.4 10*3/uL (0.0-0.87); Eosinophils % 3.5 % (0.00-10.9); Hematocrit 44.8 VOL% (35.7-47.0); Hemoglobin 13.6 GM/DL (12.0-16.0); Immature Granulocytes % 0.5 %; Immature Granulocytes Absolute 0.05 #; Lymphocytes # 2.8 10*3/uL (1.4-4.0); Lymphocytes % 26.9 % (21.3-54.2); Mean Corpuscular HGB Conc 30.4 GM/DL (32-36); Mean Corpuscular Hemoglobin 26 PG (27-34); Mean Corpuscular Volume 86.5 FL (87-102); Mean Platelet Volume 11.1 FL (9.6-12.0); Monocytes # 0.7 10*3/uL (0.11-0.8); Monocytes % 6.3 % (1.7-12.7); Neutrophils # 6.4 10*3/uL (1.4-7.4); Neutrophils % 62.5 % (38.7-73.9); Platelet Count 181 T/CUMM (130-400); Red Blood Count 5.18 MC/CUMM (3.8-5.5); Red Cell Distribution Width 15.4 % (9.3-17.3); White Blood Count 10.3 T/CUMM (4-12)
[2016-08-25 07:38] LABS: Albumin 2.8 G/DL (3.4-5.0); Bilirubin,Total 0.5 MG/DL (0.2-1.0); Calcium 8.7 MG/DL (8.5-10.1); Osmolality,Calculated 280.3 MOS/KG (273-304); Potassium 5.6 MMOL/L (3.5-5.1); Total Protein 6.8 G/DL (6.4-8.3)
[2016-08-25] MEDS: DOCUSATE SODIUM 100 MG CAPSULE PO SCH ×2 (09:39→21:13)
[2016-08-25] MEDS: cloNIDine 0.1 MG TABLET PO SCH ×2 (09:39→21:12)
[2016-08-25] MEDS: POLYETHYLENE GLYCOL POWDER 17 GM PACK PO SCH (09:39)
[2016-08-25] MEDS: CALCIUM (CITRATE) 200 MG TABLET PO SCH (09:39)
[2016-08-25] MEDS: MECLIZINE 25 MG TABLET PO SCH ×2 (09:39→21:11)
[2016-08-25] MEDS: POTASSIUM CHLORIDE 20 MEQ TABLET PO SCH (09:39)
[2016-08-25] MEDS: CITALOPRAM 40 MG TABLET PO SCH (09:39)
[2016-08-25] MEDS: DESITIN 4OZ/NYSTATIN 15 GRAM MIXTURE PASTE TOP SCH ×2 (09:40→22:36)
[2016-08-25] MEDS: CETIRIZINE 10 MG TABLET PO SCH (09:40)
[2016-08-25] MEDS: FLUTICASONE 50 MCG NASAL SPRAY 16 GM BOTTLE BOTH NARES SCH ×2 (09:40→22:36)
[2016-08-25] MEDS: LEVOTHYROXINE 125 MCG TABLET PO SCH (09:40)
[2016-08-25] MEDS: NYSTATIN POWDER 15 GM BOTTLE TOP SCH ×2 (09:40→22:36)
[2016-08-25] MEDS: TIMOLOL 0.5% OPH SOLN 5 ML BOTTLE BOTH EYES SCH (09:40)
[2016-08-25] MEDS: PANTOPRAZOLE 40 MG TABLET PO SCH (09:40)
--- NOTE | 2016-08-25 11:52 | Event Note ---
Afebrile vital signs stable. Left leg dressing change. Still some slough and exudate present. Continue local wound care and antibiotics.
[2016-08-25] MEDS: POTASSIUM CHLORIDE INJ 40 MEQ in SODIUM CHLORIDE 0.45% 1,000 ML IV SCH (12:15)
--- NOTE | 2016-08-25 15:36 | Internal Med Progress Note ---
Assessment and Plan (1) COPD (chronic obstructive pulmonary disease) Status: Chronic Current Visit: Yes (2) Lower extremity edema Status: Chronic Current Visit: Yes (3) Pulmonary edema Status: Acute Current Visit: Yes Qualifiers: Chronicity: acute Qualified Code(s): J81.0 - Acute pulmonary edema (4) UTI (urinary tract infection) Status: Acute Current Visit: Yes Qualifiers: Hematuria presence: without hematuria (5) Traumatic abrasion Problem details: surgical debridement Status: Acute Current Visit: Yes Internal Medicine - PN: Subj Interval history: Ms. Castillo is a 89 year old female patient of Dr. Cottrell with history of stroke , HTN, COPD, history of CHF episode, OA, dyslipidemia, who presented to ER with acute UTI and lower extremity wound sustained after a fall two weeks ago. She has had peripheral lymphedema over last several weeks. Dr. Robison will be consulted for wound care. , she had surgical debridement of lower extremity earlier today, and tolerated the procedure. Anticipate a quicker recovery at this point. Friday, she had a bad night last night with gas pain, according to the daughter. She has been having loose stools. Laying on her left side gave relief. She may be having GI distress from Zosyn, and it will be discontinued. She had owning last night, but seems to be calm at this time on rounds. Appears stable. Worsening owning, and will add Risperdal. Her left eye appears red with mattering and will start Tobramycin drops. Exam (Progress Note) - Constitutional Vitals: Period Temp Pulse Resp BP Sys/Collins Pulse Ox Last 24 Hr 97.0 F-99.2 F 72-82 18-20 145-190/74-97 92-99 Exam: General appearance: no acute distress; appears better Left eye irritation with mattering - Respiratory Respiratory exam: Present: clear to auscultation bilaterally - Cardiovascular Cardiovascular exam: Present: regular rate and rhythm - GI/Abdominal GI/Abdominal exam: Present: normal bowel sounds, soft - Extremities Exam Extremities exam: Present: edema - Neurological Exam Neurological exam: Present: alert, CN II-XII intact - Psychiatric Psychiatric exam: Present: normal mood - Skin Skin exam: Present: warm, dry; lower extremity surgical bandages in place Results - Labs CBC & BMP: 08/25/16 05:51 08/25/16 05:51 Quality Measures - VTE Contraindication to Pharmacological VTE Prophylaxis: High Risk of Bleeding
[2016-08-25] MEDS ORDERED: SODIUM POLYSTYRENE SULFATE 15 GM/60 ML BOTTLE PO STA (16:59)
[2016-08-25] MEDS: CARBIDOPA/LEVODOPA 25-100 MG TABLET PO SCH (17:15)
[2016-08-25] MEDS: TORSEMIDE 20 MG TABLET PO SCH (17:15)
[2016-08-25] MEDS ORDERED: cefTRIAXone 1,000 MG in SODIUM CHLORIDE 0.9% 100 ML IV SCH (18:00)
[2016-08-25] MEDS: SODIUM CHLORIDE 0.9% 1,000 ML IV SCH (18:27)
[2016-08-25] MEDS: traMADol 50 MG TABLET PO PRN (18:39)
[2016-08-25] MEDS: MEGESTROL 400 MG/10 ML UDCUP PO SCH (21:11)
[2016-08-25] MEDS: TOBRAMYCIN 0.3% OPH SOLN 5 ML BOTTLE LEFT EYE SCH (21:11)
[2016-08-25] MEDS: traZODone 50 MG TABLET PO SCH (21:12)
[2016-08-25] MEDS: risperiDONE 0.5 MG TABLET PO SCH (21:12)
[2016-08-26] MEDS: ALBUTEROL/IPRATROPIUM 3 ML NEB RESP TX SCH ×4 (01:03→19:38)
[2016-08-26] MEDS: traMADol 50 MG TABLET PO PRN ×3 (06:05→22:12)
[2016-08-26 06:15] LABS: Basophils # 0.1 10*3/uL (0.0-0.2); Basophils % 0.4 % (0.0-0.8); Eosinophils # 0.4 10*3/uL (0.0-0.87); Eosinophils % 3.3 % (0.00-10.9); Hematocrit 42.3 VOL% (35.7-47.0); Hemoglobin 13.3 GM/DL (12.0-16.0); Immature Granulocytes Absolute 0.12 #; Lymphocytes % 25.7 % (21.3-54.2); Mean Corpuscular HGB Conc 31.4 GM/DL (32-36); Mean Corpuscular Hemoglobin 26 PG (27-34); Mean Corpuscular Volume 83.6 FL (87-102); Mean Platelet Volume 10.8 FL (9.6-12.0); Monocytes # 0.8 10*3/uL (0.11-0.8); Monocytes % 6.9 % (1.7-12.7); Neutrophils # 7.3 10*3/uL (1.4-7.4); Neutrophils % 62.7 % (38.7-73.9); Platelet Count 211 T/CUMM (130-400); Red Blood Count 5.06 MC/CUMM (3.8-5.5); Red Cell Distribution Width 15.3 % (9.3-17.3); White Blood Count 11.6 T/CUMM (4-12)
[2016-08-26 06:33] LABS: Hypochromasia 1+; Platelet Estimate Adequate
[2016-08-26] MEDS: LEVOTHYROXINE 125 MCG TABLET PO SCH (06:48)
[2016-08-26 06:53] LABS: Alanine Aminotransferase < 6 U/L (13-56); Albumin 2.8 G/DL (3.4-5.0); Alkaline Phosphatase 133 U/L (45-117); Aspartate Amino Transferase 23 U/L (0-37); Bilirubin,Total < 0.39 MG/DL (0.2-1.0); Blood Urea Nitrogen 17 MG/DL (7-18); Calcium 8.9 MG/DL (8.5-10.1); Glucose 126 MG/DL (74-106); Osmolality,Calculated 289.8 MOS/KG (273-304); Potassium 4.2 MMOL/L (3.5-5.1); Sodium 144 MMOL/L (136-145); Total Protein 6.7 G/DL (6.4-8.3)
--- NOTE | 2016-08-26 08:51 | CT Report ---
Referring physician: Dianne Hogan Exam: CT brain without contrast Date: 08/26/2016 Comparison: 08/20/2016 Reason: Confusion, aphasia Technique: Axial images of the head were obtained without the use of contrast. Total DLP was 1053.40 mGy*cm. Findings: The ventricles remain diffusely dilated with no midline displacement. Diffuse atrophy and several hypodensities. Chronic right basal ganglia and left cerebellar infarcts. Vascular calcifications are noted. There is no evidence of an acute infarction, recent intracranial hemorrhage or abnormal mass effect. The osseous structures appear intact. The mastoid air cells are clear. Polypoidal mucosal thickening in the left maxillary sinus with small air-fluid level. Post operative findings in the globes. Impression: No acute intracranial abnormality is identified. Persistent atrophy, microvascular disease, and chronic infarcts. Progressive left maxillary sinusitis. The CT exam was performed using one or more of the following dose reduction techniques: Automated exposure control and adjustment of the mA and/or kV according to patient size. PROCEDURE INTERPRETED AT [facility] DEPARTMENT OF RADIOLOGY Final Report Signed by: Dr. Montse Kessler
[2016-08-26] MEDS: SODIUM CHLORIDE 0.9% 1,000 ML IV SCH ×2 (09:21→23:00)
--- NOTE | 2016-08-26 09:24 | Neurology Consult Note ---
History of Present Illness History of present illness: Patient is a poor historian and history basically obtained from the chart. Ms. Castillo is a 89 year old right-handed white lady patient of Dr. Cottrell with history of stroke, HTN, COPD, history of CHF episode, OA, dyslipidemia, who presented to ER with acute UTI and lower extremity wound sustained after a fall two weeks ago. She has had peripheral lymphedema over last several weeks. She underwent surgical debridement of the left leg. Neurology is consulted to evaluate her for confusion, sundowning and change in mental status. Patient is unable to provide me any information. Eye exam is nonfocal. I am concerned about possible underlying dementia. CT of the head is unremarkable for any acute pathology. It did show some chronic infarcts. Patient is somewhat confused and disoriented. However she knows that she is in the hospital. Home Medications Medication Instructions Recorded Confirmed Type Betamethasone Linda 0.1% Cream 1 applic TOP DAILY PRN 04/28/16 08/24/16 History [Valisone 0.1% Cream] Carbidopa/Levodopa 1 each PO DAILY W/SUPPER 04/28/16 08/24/16 History [Carbidopa-Levodopa 25-100 Tab] Cetirizine Tab [ZyrTEC Tab] 10 mg PO DAILY 04/28/16 08/24/16 History Citalopram [CeleXA] 40 mg PO DAILY 04/28/16 08/24/16 History Clotrimazole 1% Cream [Lotrimin 1% 1 applic TOP DAILY PRN 04/28/16 08/24/16 History Cream] Docusate Sodium Cap [Colace Cap] 100 mg PO BID 04/28/16 08/24/16 History Ferrous Sulfate Tab [Feosol 325 mg PO DAILY 04/28/16 08/24/16 History Original Tab] Fluticasone 50 Mcg Nasal [place] 1 spray BOTH NARES BID 04/28/16 08/24/16 History [Flonase Nasal [place]] Gabapentin Cap/Tab [Neurontin 300 mg PO TID 04/28/16 08/24/16 History Cap/Tab] Levothyroxine Tab [Synthroid Tab] 125 mcg PO DAILY@0700 04/28/16 08/24/16 History Meclizine [Antivert] 25 mg PO BID 04/28/16 08/24/16 History Neomyc/Polymyx/Dexam Oph Susp 1 drop BOTH EYES QID 04/28/16 08/24/16 History [Maxitrol Oph Susp] Omeprazole 20 mg PO DAILY 04/28/16 08/24/16 History Oxybutynin Chloride 10 mg PO BID 04/28/16 08/24/16 History Polyethylene Glycol Powder 17 gm PO DAILY 04/28/16 08/24/16 History [Miralax] Potassium Chloride 1 tablet PO BID 04/28/16 08/24/16 History Timolol Maleate [Timolol 0.5% Oph 1 drop BOTH EYES QAM 04/28/16 08/24/16 History Soln] Torsemide Tab [Demadex Tab] 20 mg PO DAILY W/SUPPER 04/28/16 08/24/16 History Trazodone HCl 50 mg PO BEDTIME 04/28/16 08/24/16 History Cyclobenzaprine HCl 10 mg PO BID 06/09/16 08/24/16 History [Cyclobenzaprine HCl] Indomethacin Cap [Indocin Cap] 25 mg PO TID #20 capsule 06/09/16 08/24/16 Rx guaiFENesin/CODEINE [Robitussin AC] 5 - 10 ml PO Q6H PRN 06/09/16 08/24/16 History predniSONE TAB [PredniSONE] 10 mg PO DAILY #10 tablet 06/09/16 08/24/16 Rx Allergies Allergy/AdvReac Type Severity Reaction Status Date / Time piperacillin [From Zosyn] Allergy Intermediate Gastrointestinal Verified 15:58 Upset tazobactam [From Zosyn] Allergy Intermediate Gastrointestinal Verified 08/23/16 15:58 Upset Sulfa (Sulfonamide Allergy Redness of Verified 04/28/16 12:47 Antibiotics) Skin 12 point system: reviewed and no additional remarkable complaints except as stated Medical,Surgical,& Family Hx - Medical History Cardio: History of: Cerebrovascular Disease, Hypertension Neurology: History of: Cerebrovascular Accident, Peripheral Neuropathy HEENT: History of: HEENT Problems (allergic rhinitis) Endocrine: History of: Thyroid Disorder Respiratory: History of: COPD Genitourinary: History of: Recurring Urinary Tract Infections Musculoskeletal: History of: Musculoskeletal Problems (osteoarthritis) Hematology: History of: Anemia - Social History Smoking Status: Former smoker Frequency of Alcohol Use: None Type of Drug Use: None Exam - Constitutional Vitals: Period Temp Pulse Resp BP Sys/Collins Pulse Ox Last 24 Hr 97.0 F-97.9 F 61-84 18-20 139-190/57-94 91-97 Exam: GENERAL: Patient is in no acute distress. NECK: Neck is supple. There is no JVD. No carotid bruits present. No thyroid masses. CVS: First and second heart sounds are normal. There is no S3 present. Regular rate and rhythm. RESPIRATORY: Lungs are clear to auscultation without any rales or rhonchi. ABDOMEN: Soft and non-tender. Bowel sounds are present. There is no hepatosplenomegaly. EXT: There is no palpable edema. Peripheral pulses are present. Skin: No rashes Central Nervous system: General: Alert, awake and Oriented x 1 Speech: Fluent Comprehension: Fair Facial expressions: Normal Cranial Nerves: CN1/Olfactory: Normal CN II/ Optic: Normal, Visual Gallegos unreliable CN III, and : THOMAS & EOMI CN V: Normal & intact CN VII: face is symmetric CNVIII: Normal CN XI/X/XI/XII: Intact and Normal Motor: Bulk and Tone is normal. Strength in the right 4/5 Strength in the left 3-4/5 Sensory: Unreliable Reflexes: 1+ and symmetrical Cerebellar function: Grossly normal finger to nose and heel to child testing. Toes: Equivocal Gait: Not tested Results - Labs CBC & BMP: 08/26/16 06:00 08/26/16 06:00 Assessment and Plan (1) Dementia Status: Acute Assessment and plan: Add Aricept 5 mg p.o. daily Mini-Mental exam B12, folate, TSH Continue Risperdal for now Thank you for the consult Current Visit: Yes
[2016-08-26] MEDS: cloNIDine 0.1 MG TABLET PO SCH ×3 (09:36→23:01)
[2016-08-26] MEDS: MECLIZINE 25 MG TABLET PO SCH ×2 (09:36→22:07)
[2016-08-26] MEDS: CALCIUM (CITRATE) 200 MG TABLET PO SCH (09:36)
[2016-08-26] MEDS: CITALOPRAM 40 MG TABLET PO SCH (09:36)
[2016-08-26] MEDS: DOCUSATE SODIUM 100 MG CAPSULE PO SCH ×2 (09:36→22:07)
[2016-08-26] MEDS: DESITIN 4OZ/NYSTATIN 15 GRAM MIXTURE PASTE TOP SCH ×2 (09:37→22:13)
[2016-08-26] MEDS: POLYETHYLENE GLYCOL POWDER 17 GM PACK PO SCH (09:37)
[2016-08-26] MEDS: MEGESTROL 400 MG/10 ML UDCUP PO SCH ×2 (09:37→22:06)
[2016-08-26] MEDS: CETIRIZINE 10 MG TABLET PO SCH (09:38)
[2016-08-26] MEDS: PANTOPRAZOLE 40 MG TABLET PO SCH (09:38)
[2016-08-26] MEDS: NYSTATIN POWDER 15 GM BOTTLE TOP SCH ×2 (09:46→22:13)
[2016-08-26] MEDS: FLUTICASONE 50 MCG NASAL SPRAY 16 GM BOTTLE BOTH NARES SCH ×2 (09:46→22:13)
[2016-08-26] MEDS: TOBRAMYCIN 0.3% OPH SOLN 5 ML BOTTLE LEFT EYE SCH ×2 (09:46→23:00)
[2016-08-26] MEDS: TIMOLOL 0.5% OPH SOLN 5 ML BOTTLE BOTH EYES SCH (09:46)
[2016-08-26 10:20] LABS: Free T4 (Free Thyroxine) 1.6 NG/DL (0.76-1.46); Thyroid Stimulating Hormone 10.4 uIU/ml (0.358-3.74)
[2016-08-26 11:24] LABS: Folate 11.1 NG/ML (5.4-24.0)
--- NOTE | 2016-08-26 15:11 | General Surgery Progress Note ---
Assessment and Plan (1) Hematoma of left lower extremity Status: Acute Assessment and plan: 08/26/16 Doing well from the wound standpoint. We will plan to remove the tae drain today and switch to a collagen product with silver. She should be fine to transition to QOD dressing changes. Her antibiotics will be reviewed and adjusted as per sensitivities. We will need to maintain light compression during the healing phase. 08/23/16 Stable post op evacuation of left lower leg hematoma. We will begin dressing changes today. If she can tolerate PT, it's OK to begin getting her up and having her do whatever she's able-certainly no restrictions on weight bearing, etc. We will await final cultures and look at her care options. Leaving the tae drain for now. Current Visit: Yes Subjective Patient reports: Present: other (The patient is rather confused today but when asked, denies pain.) Exam - Constitutional Vitals: Period Temp Pulse Resp BP Sys/Collins Pulse Ox Last 24 Hr 96.0 F-97.9 F 61-84 18-20 139-161/57-94 91-97 General appearance: other (Confused; her daughter is present today and says she is actually better now than over the weekend but says she has been resting comfortably since yesterday. ) - Extremities Exam Extremities exam: Present: other (LLE with well controlled edema; erythema has cleared and the anterior tibial wound is clean and pink. Scant drainage from the tae drain. No mass, no purulence, drainage, or reaccumulation of the hematoma. There is no calf tenderness. ) Results - Labs CBC & BMP: 08/26/16 06:00 08/26/16 06:00 Lab Results: I have reviewed the past 24 hour labs (Labs noted. Micro shows E.coli on tissue culture from surgery.) Quality Measures - VTE Contraindication to Pharmacological VTE Prophylaxis: High Risk of Bleeding
--- NOTE | 2016-08-26 16:54 | Internal Med Progress Note ---
Assessment and Plan (1) COPD (chronic obstructive pulmonary disease) Status: Chronic Current Visit: Yes (2) Lower extremity edema Status: Chronic Current Visit: Yes (3) Pulmonary edema Status: Resolved Current Visit: Yes Qualifiers: Chronicity: acute Qualified Code(s): J81.0 - Acute pulmonary edema (4) UTI (urinary tract infection) Status: Acute Current Visit: Yes Qualifiers: Hematuria presence: without hematuria (5) Traumatic abrasion Problem details: surgical debridement Status: Acute Current Visit: Yes (6) S/P debridement Status: Acute Current Visit: Yes Internal Medicine - PN: Subj Interval history: Ms. Castillo is a 89 year old female patient of Dr. Cottrell with history of stroke , HTN, COPD, history of CHF episode, OA, dyslipidemia, who presented to ER with acute UTI and lower extremity wound sustained after a fall two weeks ago. She has had peripheral lymphedema over last several weeks. Dr. Robison will be consulted for wound care. , she had surgical debridement of lower extremity earlier today, and tolerated the procedure. Anticipate a quicker recovery at this point. Friday, she had a bad night last night with gas pain, according to the daughter. She has been having loose stools. Laying on her left side gave relief. She may be having GI distress from Zosyn, and it will be discontinued. She had owning last night, but seems to be calm at this time on rounds. Appears stable. Worsening , and will add Risperdal. Her left eye appears red with mattering and will start Tobramycin drops. Today, Friday, she appears to be feeling better and responded favorably. She seems to recognize individuals in the room. Will continue current treatment. Exam (Progress Note) - Constitutional Vitals: Period Temp Pulse Resp BP Sys/Collins Pulse Ox Last 24 Hr 96.0 F-98.3 F 61-84 18-20 117-161/57-73 91-98 Exam: General appearance: no acute distress; appears better Left eye irritation improved - Respiratory Respiratory exam: Present: clear to auscultation bilaterally - Cardiovascular Cardiovascular exam: Present: regular rate and rhythm - GI/Abdominal GI/Abdominal exam: Present: normal bowel sounds, soft - Extremities Exam Extremities exam: Present: edema - Neurological Exam Neurological exam: Present: alert - Psychiatric Psychiatric exam: Present: normal mood - Skin Skin exam: Present: warm, dry Results - Labs CBC & BMP: 08/27/16 03:22 08/27/16 03:22 Quality Measures - VTE Contraindication to Pharmacological VTE Prophylaxis: High Risk of Bleeding
[2016-08-26] MEDS: TORSEMIDE 20 MG TABLET PO SCH (17:55)
[2016-08-26] MEDS: CARBIDOPA/LEVODOPA 25-100 MG TABLET PO SCH (17:55)
[2016-08-26] MEDS: cefTRIAXone 1,000 MG in SODIUM CHLORIDE 0.9% 100 ML IV SCH (17:59)
[2016-08-26] MEDS: traZODone 50 MG TABLET PO SCH (22:07)
[2016-08-26] MEDS: DONEPEZIL 5 MG TABLET PO SCH (22:07)
[2016-08-26] MEDS: risperiDONE 0.5 MG TABLET PO SCH (22:07)
[2016-08-27] MEDS: ALBUTEROL/IPRATROPIUM 3 ML NEB RESP TX SCH ×4 (02:00→20:51)
[2016-08-27 03:57] LABS: Basophils % 0.2 % (0.0-0.8); Eosinophils # 0.4 10*3/uL (0.0-0.87); Eosinophils % 3.7 % (0.00-10.9); Hematocrit 34.2 VOL% (35.7-47.0); Hemoglobin 10.5 GM/DL (12.0-16.0); Immature Granulocytes % 0.5 %; Immature Granulocytes Absolute 0.05 #; Lymphocytes # 2.8 10*3/uL (1.4-4.0); Lymphocytes % 27.2 % (21.3-54.2); Mean Corpuscular HGB Conc 30.7 GM/DL (32-36); Mean Corpuscular Hemoglobin 26 PG (27-34); Mean Corpuscular Volume 83.4 FL (87-102); Mean Platelet Volume 10.1 FL (9.6-12.0); Monocytes # 0.8 10*3/uL (0.11-0.8); Monocytes % 7.4 % (1.7-12.7); Neutrophils # 6.2 10*3/uL (1.4-7.4); Platelet Count 252 T/CUMM (130-400); Red Cell Distribution Width 15.5 % (9.3-17.3); White Blood Count 10.1 T/CUMM (4-12)
[2016-08-27 04:26] LABS: Calcium 8.1 MG/DL (8.5-10.1); Osmolality,Calculated 291.7 MOS/KG (273-304); Potassium 3.7 MMOL/L (3.5-5.1)
[2016-08-27] MEDS: LEVOTHYROXINE 125 MCG TABLET PO SCH (06:54)
[2016-08-27] MEDS: DESITIN 4OZ/NYSTATIN 15 GRAM MIXTURE PASTE TOP SCH ×2 (08:28→21:47)
[2016-08-27] MEDS: NYSTATIN POWDER 15 GM BOTTLE TOP SCH ×2 (08:28→21:47)
--- NOTE | 2016-08-27 10:27 | General Surgery Progress Note ---
Assessment and Plan - Time spent with patient Time spent with patient: Less than 30 minutes (1) Hematoma of left lower extremity Status: Acute Assessment and plan: 08/27/2016 Tolerating dressing changes well. The drain has been removed, and we have an established protocol for every other day dressing changes. She should be able to transition now to either a home health situation versus an inpatient facility at any time. We do not feel she will need additional systemic antibiotics, just good local care and topicals. 08/26/16 Doing well from the wound standpoint. We will plan to remove the tae drain today and switch to a collagen product with silver. She should be fine to transition to QOD dressing changes. Her antibiotics will be reviewed and adjusted as per sensitivities. We will need to maintain light compression during the healing phase. 08/23/16 Stable post op evacuation of left lower leg hematoma. We will begin dressing changes today. If she can tolerate PT, it's OK to begin getting her up and having her do whatever she's able-certainly no restrictions on weight bearing, etc. We will await final cultures and look at her care options. Leaving the tae drain for now. Current Visit: Yes Subjective Patient reports: Present: no new complaints, other Exam - Constitutional Vitals: Period Temp Pulse Resp BP Sys/Collins Pulse Ox Last 24 Hr 96.0 F-98.3 F 63-78 16-21 106-143/54-74 91-99 General appearance: no acute distress, other (Patient is very sleepy today. She awakens but does not answer questions.) - Respiratory Respiratory exam: Absent: rales, rhonchi - Cardiovascular Cardiovascular exam: Present: RRR - Extremities Exam Extremities exam: Present: other (Left lower extremity dressing is in place without drainage. Toes are warm to touch and well perfused.) Results - Labs CBC & BMP: 08/27/16 03:22 08/27/16 03:22 Lab Results: I have reviewed the past 24 hour labs (Labs stable.) Quality Measures - VTE Contraindication to Pharmacological VTE Prophylaxis: High Risk of Bleeding
[2016-08-27] MEDS: cloNIDine 0.1 MG TABLET PO SCH ×2 (10:53→16:45)
[2016-08-27] MEDS: MECLIZINE 25 MG TABLET PO SCH (10:53)
[2016-08-27] MEDS: CALCIUM (CITRATE) 200 MG TABLET PO SCH (10:54)
[2016-08-27] MEDS: CITALOPRAM 40 MG TABLET PO SCH (10:54)
[2016-08-27] MEDS: MEGESTROL 400 MG/10 ML UDCUP PO SCH ×2 (10:55→21:48)
[2016-08-27] MEDS: POLYETHYLENE GLYCOL POWDER 17 GM PACK PO SCH (10:55)
[2016-08-27] MEDS: DOCUSATE SODIUM 100 MG CAPSULE PO SCH ×2 (10:55→21:48)
[2016-08-27] MEDS: PANTOPRAZOLE 40 MG TABLET PO SCH (10:55)
[2016-08-27] MEDS: CETIRIZINE 10 MG TABLET PO SCH (10:55)
[2016-08-27] MEDS: TOBRAMYCIN 0.3% OPH SOLN 5 ML BOTTLE LEFT EYE SCH ×2 (11:04→21:47)
[2016-08-27] MEDS: TIMOLOL 0.5% OPH SOLN 5 ML BOTTLE BOTH EYES SCH (11:04)
[2016-08-27] MEDS: FLUTICASONE 50 MCG NASAL SPRAY 16 GM BOTTLE BOTH NARES SCH ×2 (11:05→21:48)
[2016-08-27] MEDS: SODIUM CHLORIDE 0.9% 1,000 ML IV SCH ×2 (12:53→23:12)
[2016-08-27] MEDS ORDERED: risperiDONE 0.5 MG TABLET PO SCH (15:10)
--- NOTE | 2016-08-27 15:10 | Neurology Progress Note ---
Neurology - PN : Subjective Interval history: Patient seems to be doing okay. No new problems reported. Memory is about the same. Her TSH is high and I will defer the treatment to Dr. Dianne Hogan. Exam (Progress Note) - Constitutional Vitals: Period Temp Pulse Resp BP Sys/Collins Pulse Ox Last 24 Hr 97.5 F-98.3 F 63-78 16-21 106-159/54-74 91-99 Exam: GENERAL: Patient is in no acute distress. NECK: Neck is supple. There is no JVD. No carotid bruits present. No thyroid masses. CVS: First and second heart sounds are normal. There is no S3 present. Regular rate and rhythm. RESPIRATORY: Lungs are clear to auscultation without any rales or rhonchi. ABDOMEN: Soft and non-tender. Bowel sounds are present. There is no hepatosplenomegaly. EXT: There is no palpable edema. Peripheral pulses are present. Skin: No rashes Central Nervous system: General: Alert, awake and Oriented x 1 Speech: Fluent Comprehension: Fair Facial expressions: Normal Cranial Nerves: CN1/Olfactory: Normal CN II/ Optic: Normal, Visual Gallegos unreliable CN III, and : THOMAS & EOMI CN V: Normal & intact CN VII: face is symmetric CNVIII: Normal CN XI/X/XI/XII: Intact and Normal Motor: Bulk and Tone is normal. Strength in the right 4/5 Strength in the left 3-4/5 Sensory: Unreliable Reflexes: 1+ and symmetrical Cerebellar function: Grossly normal finger to nose and heel to child testing. Toes: Equivocal Gait: Not tested Results - Labs CBC & BMP: 08/27/16 03:22 08/27/16 03:22 Assessment and Plan (1) Dementia Status: Acute Assessment and plan: Continue Aricept at the same Change Risperdal to 0.5 mg at bedtime since it is making her too sleepy Current Visit: Yes Quality Measures - VTE Contraindication to Pharmacological VTE Prophylaxis: High Risk of Bleeding
[2016-08-27] MEDS: CARBIDOPA/LEVODOPA 25-100 MG TABLET PO SCH (16:56)
[2016-08-27] MEDS: TORSEMIDE 20 MG TABLET PO SCH (16:56)
[2016-08-27] MEDS: traMADol 50 MG TABLET PO PRN (17:02)
[2016-08-27] MEDS: cefTRIAXone 1,000 MG in SODIUM CHLORIDE 0.9% 100 ML IV SCH (17:59)
--- NOTE | 2016-08-27 19:40 | Internal Med Progress Note ---
Assessment and Plan (1) COPD (chronic obstructive pulmonary disease) Status: Chronic Current Visit: Yes (2) Lower extremity edema Status: Chronic Current Visit: Yes (3) Pulmonary edema Status: Resolved Current Visit: Yes Qualifiers: Chronicity: acute Qualified Code(s): J81.0 - Acute pulmonary edema (4) UTI (urinary tract infection) Status: Acute Current Visit: Yes Qualifiers: Hematuria presence: without hematuria (5) Traumatic abrasion Problem details: surgical debridement Status: Acute Current Visit: Yes (6) Sundowning Status: Chronic Current Visit: Yes (7) Constipation Status: Chronic Current Visit: Yes Qualifiers: Constipation type: slow transit constipation Qualified Code(s): K59.01 - Slow transit constipation (8) S/P debridement Status: Acute Current Visit: Yes Internal Medicine - PN: Subj Interval history: Ms. Castillo is a 89 year old female patient of Dr. Cottrell with history of stroke , HTN, COPD, history of CHF episode, OA, dyslipidemia, who presented to ER with acute UTI and lower extremity wound sustained after a fall two weeks ago. She has had peripheral lymphedema over last several weeks. Dr. Robison will be consulted for wound care. , she had surgical debridement of lower extremity earlier today, and tolerated the procedure. Anticipate a quicker recovery at this point. Friday, she had a bad night last night with gas pain, according to the daughter. She has been having loose stools. Laying on her left side gave relief. She may be having GI distress from Zosyn, and it will be discontinued. She had owning last night, but seems to be calm at this time on rounds. Appears stable. Worsening , and will add Risperdal. Her left eye appears red with mattering and will start Tobramycin drops. Today, Friday, she appears to be feeling better and responded favorably. She seems to recognize individuals in the room. Will continue current treatment. Today, Friday, she was moaning while seen, but denied pain. The daughter in the room expressed interest in herbal remedies. Concerned about constipation and adding Milk of MagEdy AGOSTO and consult for Dr. Campbell. There is a status change. Hypotensive. Ordering blood cultures. Holding antihypertensive meds for now. She has had hypotensive drop a couple days ago. Also, increasing levothyroxine for elevated TSH. Nurse reported later that daughter refused blood cultures. Exam (Progress Note) - Constitutional Vitals: Period Temp Pulse Resp BP Sys/Collins Pulse Ox Last 24 Hr 97.5 F-98.3 F 66-78 16-21 99-159/46-74 92-99 Exam: General appearance: mild distress - Respiratory Respiratory exam: Present: difficult to hear because of moaning; ordering chest x-ray - Cardiovascular Cardiovascular exam: Present: regular rate - GI/Abdominal GI/Abdominal exam: Present: normal bowel sounds, soft - Extremities Exam Extremities exam: Present: edema - Neurological Exam Neurological exam: Present: alert - Psychiatric Psychiatric exam: Present: appears uncomfortable - Skin Skin exam: Present: warm, dry Results - Labs CBC & BMP: 08/27/16 03:22 08/27/16 03:22 Quality Measures - VTE Contraindication to Pharmacological VTE Prophylaxis: High Risk of Bleeding
--- NOTE | 2016-08-27 20:42 | XRay Report ---
XR KUB Indication: Abdominal pain Comparison: None available Findings: No free fluid or free air seen. Increased stool volume is seen in the colon. The bowel gas pattern otherwise appears within normal limits. No abnormal calcifications are present. Stimulator device is present, appears within normal limits. No other abnormality is identified. Impression: Increased stool volume in the colon, may indicate constipation. PROCEDURE INTERPRETED AT [facility] DEPARTMENT OF RADIOLOGY Final Report Signed by: Dr. Sami Nunez
[2016-08-27] MEDS ORDERED: cloNIDine 0.1 MG TABLET PO PRN (20:48)
[2016-08-27] MEDS ORDERED: cloNIDine 0.1 MG TABLET PO SCH (21:00)
[2016-08-27] MEDS: DONEPEZIL 5 MG TABLET PO SCH (21:48)
[2016-08-27] MEDS: traZODone 50 MG TABLET PO SCH (21:52)
[2016-08-28] MEDS: ALBUTEROL/IPRATROPIUM 3 ML NEB RESP TX SCH ×4 (00:20→19:40)
[2016-08-28 06:34] LABS: Basophils % 0.3 % (0.0-0.8); Eosinophils # 0.4 10*3/uL (0.0-0.87); Eosinophils % 2.9 % (0.00-10.9); Hematocrit 41.6 VOL% (35.7-47.0); Immature Granulocytes % 0.6 %; Immature Granulocytes Absolute 0.07 #; Lymphocytes # 2.6 10*3/uL (1.4-4.0); Lymphocytes % 21.4 % (21.3-54.2); Mean Corpuscular HGB Conc 30.3 GM/DL (32-36); Mean Corpuscular Hemoglobin 26 PG (27-34); Mean Corpuscular Volume 84.4 FL (87-102); Mean Platelet Volume 10.3 FL (9.6-12.0); Monocytes # 0.9 10*3/uL (0.11-0.8); Monocytes % 7.6 % (1.7-12.7); Neutrophils # 8.3 10*3/uL (1.4-7.4); Neutrophils % 67.2 % (38.7-73.9); Platelet Count 266 T/CUMM (130-400); Red Cell Distribution Width 15.8 % (9.3-17.3); White Blood Count 12.3 T/CUMM (4-12)
[2016-08-28 06:46] LABS: Red Blood Count 4.93 MC/CUMM (3.8-5.5)
--- NOTE | 2016-08-28 06:46 | XRay Report ---
Exam: XR chest 1V portable Date: 08/28/2016 4:00 AM Indication: Volume overload Comparison: 08/20/2016 Findings: Low volume effusions are present with basilar atelectasis. Mild cardiac enlargement. ASVD is present. Arthritic change present over the shoulders bilaterally. Epidural catheter leads are present. No pneumothorax. Oxygen tubing is present. Impression: 1. Resolving left basilar atelectasis with some residual atelectatic change present in the basilar regions bilaterally 2. Cardiomegaly and stable position of the epidural catheter leads 3. Arthritic changes of the shoulders bilaterally. PROCEDURE INTERPRETED AT [facility] DEPARTMENT OF RADIOLOGY Final Report Signed by: Dr. Sarthak Chambers
[2016-08-28 06:47] LABS: Hemoglobin 12.6 GM/DL (12.0-16.0)
[2016-08-28] MEDS: LEVOTHYROXINE 150 MCG TABLET PO SCH (06:58)
[2016-08-28 07:12] LABS: Alanine Aminotransferase 9 U/L (13-56); Albumin 2.7 G/DL (3.4-5.0); Alkaline Phosphatase 130 U/L (45-117); Aspartate Amino Transferase 16 U/L (0-37); Bilirubin,Total < 0.39 MG/DL (0.2-1.0); Blood Urea Nitrogen 21 MG/DL (7-18); Calcium 8.3 MG/DL (8.5-10.1); Glucose 85 MG/DL (74-106); Magnesium 2.4 MG/DL (1.8-2.4); Osmolality,Calculated 289.7 MOS/KG (273-304); Potassium 3.5 MMOL/L (3.5-5.1); Sodium 145 MMOL/L (136-145); Total Protein 6.5 G/DL (6.4-8.3)
--- NOTE | 2016-08-28 09:24 | General Surgery Progress Note ---
Assessment and Plan (1) Traumatic abrasion Problem details: surgical debridement Status: Acute Assessment and plan: Impression: 1. Traumatic wound of the left leg with hematoma 2. Urinary tract infection. Plan: Debridement with drainage of hematoma 08/28/2016. The wound continues to look good at this point time is going to take a while and continued wound care in order to get some healing and epithelialization over this area. They are the only other alternative would be a consideration of the skin graft at some point if it fails to show good epithelialization. She is currently a good care at least every other day to the wound to make sure that he does not try out that stays moist at this time while we get some healing to occur. I have to be clearly established before she leaves. Current Visit: Yes Subjective Patient reports: Present: feels better, tolerating a regular diet, bowel movement, afebrile Exam - Constitutional Vitals: Period Temp Pulse Resp BP Sys/Collins Pulse Ox Last 24 Hr 96.9 F-98.3 F 66-80 17-20 99-162/46-73 91-99 General appearance: no acute distress - Head Head exam: Present: normal inspection - ENT ENT exam: Present: normal exam - Neck Neck exam: Present: normal inspection - Respiratory Respiratory exam: Present: rales - Cardiovascular Cardiovascular exam: Present: RRR - GI/Abdominal GI/Abdominal exam: Present: normal bowel sounds, soft - Extremities Exam Extremities exam: Present: other (Wound of the left leg looks clean with some early granulating tissue beginning at this time. There is no evidence of any swelling or unusual drainage.) - Neurological Exam Neurological exam: Present: alert, altered - Skin Skin exam: Present: normal color, warm, dry Results - Labs CBC & BMP: 08/28/16 05:42 08/28/16 05:42 Lab Results: I have reviewed the past 24 hour labs Quality Measures - VTE Contraindication to Pharmacological VTE Prophylaxis: High Risk of Bleeding
[2016-08-28] MEDS: SODIUM CHLORIDE 0.9% 1,000 ML IV SCH ×3 (09:37→20:07)
[2016-08-28] MEDS: POLYETHYLENE GLYCOL POWDER 17 GM PACK PO SCH (09:38)
[2016-08-28] MEDS: FLUTICASONE 50 MCG NASAL SPRAY 16 GM BOTTLE BOTH NARES SCH ×2 (09:38→20:45)
[2016-08-28] MEDS: CALCIUM (CITRATE) 200 MG TABLET PO SCH (09:38)
[2016-08-28] MEDS: PANTOPRAZOLE 40 MG TABLET PO SCH (09:38)
[2016-08-28] MEDS: TOBRAMYCIN 0.3% OPH SOLN 5 ML BOTTLE LEFT EYE SCH ×2 (09:38→20:45)
[2016-08-28] MEDS: MEGESTROL 400 MG/10 ML UDCUP PO SCH ×2 (09:38→20:47)
[2016-08-28] MEDS: TIMOLOL 0.5% OPH SOLN 5 ML BOTTLE BOTH EYES SCH (09:38)
[2016-08-28] MEDS: CETIRIZINE 10 MG TABLET PO SCH (09:38)
[2016-08-28] MEDS: DOCUSATE SODIUM 100 MG CAPSULE PO SCH ×2 (09:38→20:47)
[2016-08-28] MEDS: NYSTATIN POWDER 15 GM BOTTLE TOP SCH ×2 (09:38→20:46)
[2016-08-28] MEDS: CITALOPRAM 40 MG TABLET PO SCH (09:38)
[2016-08-28] MEDS: DESITIN 4OZ/NYSTATIN 15 GRAM MIXTURE PASTE TOP SCH ×2 (09:39→20:46)
--- NOTE | 2016-08-28 09:41 | Gastrointestinal Consult Note ---
Assessment and Plan (1) Constipation Status: Chronic Assessment and plan: 08/28-reports of constipation by daughter, who is not present during visit. Prior reports abdominal pain by patient since admission now resolved. KUB findings noted of increased stool volume in the colon. No record of colonoscopy noted at our facility database. Currently on MiraLAX and Colace. Plan an addendum to followed by Dr. Campbell. Current Visit: Yes Qualifiers: Constipation type: slow transit constipation Qualified Code(s): K59.01 - Slow transit constipation History of Present Illness Chief complaint: Abdominal pain, constipation History of present illness: Ms. Castillo is a 89 year old female who was admitted to the hospital on 08/21 with complaints of fatigue and weakness. Patient is a very poor historian with history of dementia and unable to provide information at this time. Information is obtained from chart review and nursing interview. She has a history of CVA, hypertension, COPD, CHF, OA and dyslipidemia. She was found upon admission to have a UTI as well as a wound from a fall 2 weeks prior patient is being followed by surgery for the wound to her leg. Patient is noted during this hospital stay to complain of having some vague abdominal pain as well as episodes of loose stools. This was felt to possibly be related to her Zosyn which was discontinued. Patient's daughter reported the patient has had some issues with constipation at home. Patient denies any complaints of the S are abdominal pain at this time. KUB was done and noted to show increased stool volume in the colon with no acute findings. Last known reported bowel movement noted 3 days ago by nursing staff. Patient is noted to take iron supplements at home Only findings of endoscopy in the past is noted in 2013 where she had an EGD with dilation. Unable to provide any further history at this time. Home Medications Medication Instructions Recorded Confirmed Type Betamethasone Linda 0.1% Cream 1 applic TOP DAILY PRN 04/28/16 08/24/16 History [Valisone 0.1% Cream] Carbidopa/Levodopa 1 each PO DAILY W/SUPPER 04/28/16 08/24/16 History [Carbidopa-Levodopa 25-100 Tab] Cetirizine Tab [ZyrTEC Tab] 10 mg PO DAILY 04/28/16 08/24/16 History Citalopram [CeleXA] 40 mg PO DAILY 04/28/16 08/24/16 History Clotrimazole 1% Cream [Lotrimin 1% 1 applic TOP DAILY PRN 04/28/16 08/24/16 History Cream] Docusate Sodium Cap [Colace Cap] 100 mg PO BID 04/28/16 08/24/16 History Ferrous Sulfate Tab [Feosol 325 mg PO DAILY 04/28/16 08/24/16 History Original Tab] Fluticasone 50 Mcg Nasal [place] 1 spray BOTH NARES BID 04/28/16 08/24/16 History [Flonase Nasal [place]] Gabapentin Cap/Tab [Neurontin 300 mg PO TID 04/28/16 08/24/16 History Cap/Tab] Levothyroxine Tab [Synthroid Tab] 125 mcg PO DAILY@0700 04/28/16 08/24/16 History Meclizine [Antivert] 25 mg PO BID 04/28/16 08/24/16 History Neomyc/Polymyx/Dexam Oph Susp 1 drop BOTH EYES QID 04/28/16 08/24/16 History [Maxitrol Oph Susp] Omeprazole 20 mg PO DAILY 04/28/16 08/24/16 History Oxybutynin Chloride 10 mg PO BID 04/28/16 08/24/16 History Polyethylene Glycol Powder 17 gm PO DAILY 04/28/16 08/24/16 History [Miralax] Potassium Chloride 1 tablet PO BID 04/28/16 08/24/16 History Timolol Maleate [Timolol 0.5% Oph 1 drop BOTH EYES QAM 04/28/16 08/24/16 History Soln] Torsemide Tab [Demadex Tab] 20 mg PO DAILY W/SUPPER 04/28/16 08/24/16 History Trazodone HCl 50 mg PO BEDTIME 04/28/16 08/24/16 History Cyclobenzaprine HCl 10 mg PO BID 06/09/16 08/24/16 History [Cyclobenzaprine HCl] Indomethacin Cap [Indocin Cap] 25 mg PO TID #20 capsule 06/09/16 08/24/16 Rx guaiFENesin/CODEINE [Robitussin AC] 5 - 10 ml PO Q6H PRN 06/09/16 08/24/16 History predniSONE TAB [PredniSONE] 10 mg PO DAILY #10 tablet 06/09/16 08/24/16 Rx Allergies Allergy/AdvReac Type Severity Reaction Status Date / Time piperacillin [From Zosyn] Allergy Intermediate Gastrointestinal Verified 15:58 Upset tazobactam [From Zosyn] Allergy Intermediate Gastrointestinal Verified 08/23/16 15:58 Upset Sulfa (Sulfonamide Allergy Redness of Verified 04/28/16 12:47 Antibiotics) Skin Medical,Surgical,& Family Hx - Medical History Cardio: History of: Cerebrovascular Disease, Hypertension Neurology: History of: Cerebrovascular Accident, Peripheral Neuropathy HEENT: History of: HEENT Problems (allergic rhinitis) Endocrine: History of: Thyroid Disorder Respiratory: History of: COPD Genitourinary: History of: Recurring Urinary Tract Infections Musculoskeletal: History of: Musculoskeletal Problems (osteoarthritis) Hematology: History of: Anemia - Social History Smoking Status: Former smoker Frequency of Alcohol Use: None Type of Drug Use: None ROS unobtainable: due to mental status Exam - Constitutional Vitals: Period Temp Pulse Resp BP Sys/Collins Pulse Ox Last 24 Hr 96.9 F-98.3 F 66-80 17-20 99-162/46-73 91-99 General appearance: normal weight, no acute distress - Head Head exam: Present: normal inspection, normocephalic - Eye Eye exam: Present: other (Lids and conjunctive are unremarkable). Absent: scleral icterus - ENT ENT exam: Present: normal exam, normal oropharynx - Neck Neck exam: Present: normal inspection - Respiratory Respiratory exam: Present: clear to auscultation bilaterally. Absent: rales, rhonchi, wheezes - Cardiovascular Cardiovascular exam: Present: regular rate and rhythm. Absent: diastolic murmur , JVD, systolic murmur - GI/Abdominal GI/Abdominal exam: Present: normal bowel sounds, soft. Absent: ascites, distended, mass, organomegaly, tenderness - Extremities Exam Extremities exam: Present: normal inspection, full ROM - Back Exam Back exam: Present: normal inspection - Neurological Exam Neurological exam: Present: alert, altered - Psychiatric Psychiatric exam: Present: normal affect, normal mood - Skin Skin exam: Present: normal color, warm, dry Results - Labs CBC & BMP: 08/28/16 05:42 08/28/16 05:42 Lab Results: I have reviewed the past 24 hour labs Quality Measures - VTE Contraindication to Pharmacological VTE Prophylaxis: High Risk of Bleeding
[2016-08-28] MEDS: CARBIDOPA/LEVODOPA 25-100 MG TABLET PO SCH (16:35)
[2016-08-28] MEDS: TORSEMIDE 20 MG TABLET PO SCH (16:35)
[2016-08-28] MEDS: MAGNESIUM HYDROXIDE SUSP 30 ML UDCUP PO PRN (16:39)
--- NOTE | 2016-08-28 16:41 | Neurology Progress Note ---
Neurology - PN : Subjective Interval history: Patient seems to be doing better. More alert and awake and talking. Her speech is appropriate. Exam (Progress Note) - Constitutional Vitals: Period Temp Pulse Resp BP Sys/Collins Pulse Ox Last 24 Hr 96.9 F-98.3 F 71-80 17-20 127-162/56-80 91-99 Exam: GENERAL: Patient is in no acute distress. NECK: Neck is supple. There is no JVD. No carotid bruits present. No thyroid masses. CVS: First and second heart sounds are normal. There is no S3 present. Regular rate and rhythm. RESPIRATORY: Lungs are clear to auscultation without any rales or rhonchi. ABDOMEN: Soft and non-tender. Bowel sounds are present. There is no hepatosplenomegaly. EXT: There is no palpable edema. Peripheral pulses are present. Skin: No rashes Central Nervous system: General: Alert, awake and Oriented x 1 Speech: Fluent Comprehension: Fair Facial expressions: Normal Cranial Nerves: CN1/Olfactory: Normal CN II/ Optic: Normal, Visual Gallegos unreliable CN III, and : THOMAS & EOMI CN V: Normal & intact CN VII: face is symmetric CNVIII: Normal CN XI/X/XI/XII: Intact and Normal Motor: Bulk and Tone is normal. Strength in the right 4/5 Strength in the left 3-4/5 Sensory: Unreliable Reflexes: 1+ and symmetrical Cerebellar function: Grossly normal finger to nose and heel to child testing. Toes: Equivocal Gait: Not tested Results - Labs CBC & BMP: 08/28/16 05:42 08/28/16 05:42 Assessment and Plan (1) Dementia Status: Acute Assessment and plan: Continue Aricept at the same Continue Risperdal to 0.5 mg at bedtime Sign off please call as needed Follow-up in 4-6 weeks Current Visit: Yes Quality Measures - VTE Contraindication to Pharmacological VTE Prophylaxis: High Risk of Bleeding Specialty Discharge - Follow Up or Referrals Follow up with: Josue Foy MD [Physician] - 1 Month
[2016-08-28] MEDS ORDERED: risperiDONE 0.5 MG TABLET PO PRN (18:09)
[2016-08-28] MEDS: cefTRIAXone 1,000 MG in SODIUM CHLORIDE 0.9% 100 ML IV SCH (18:58)
--- NOTE | 2016-08-28 20:34 | Internal Med Progress Note ---
Assessment and Plan (1) COPD (chronic obstructive pulmonary disease) Status: Chronic Current Visit: Yes (2) Lower extremity edema Status: Chronic Current Visit: Yes (3) Pulmonary edema Status: Resolved Current Visit: Yes Qualifiers: Chronicity: acute Qualified Code(s): J81.0 - Acute pulmonary edema (4) UTI (urinary tract infection) Status: Acute Current Visit: Yes Qualifiers: Hematuria presence: without hematuria (5) Traumatic abrasion Problem details: surgical debridement Status: Acute Current Visit: Yes (6) Sundowning Status: Chronic Current Visit: Yes (7) Constipation Status: Chronic Current Visit: Yes Qualifiers: Constipation type: slow transit constipation Qualified Code(s): K59.01 - Slow transit constipation (8) S/P debridement Status: Acute Current Visit: Yes Internal Medicine - PN: Subj Interval history: Ms. Castillo is a 89 year old female patient of Dr. Cottrell with history of stroke , HTN, COPD, history of CHF episode, OA, dyslipidemia, who presented to ER with acute UTI and lower extremity wound sustained after a fall two weeks ago. She has had peripheral lymphedema over last several weeks. Dr. Robison will be consulted for wound care. , she had surgical debridement of lower extremity earlier today, and tolerated the procedure. Anticipate a quicker recovery at this point. Friday, she had a bad night last night with gas pain, according to the daughter. She has been having loose stools. Laying on her left side gave relief. She may be having GI distress from Zosyn, and it will be discontinued. She had owning last night, but seems to be calm at this time on rounds. Appears stable. Worsening , and will add Risperdal. Her left eye appears red with mattering and will start Tobramycin drops. Today, Friday, she appears to be feeling better and responded favorably. She seems to recognize individuals in the room. Will continue current treatment. Today, Friday, she was moaning while seen, but denied pain. The daughter in the room expressed interest in herbal remedies. Concerned about constipation and adding Milk of MagEdy AGOSTO and consult for Dr. Campbell. There is a status change. Hypotensive. Ordering blood cultures. Holding antihypertensive meds for now. She has had hypotensive drop a couple days ago. Also, increasing levothyroxine for elevated TSH. Nurse reported later that daughter refused blood cultures. Friday, on rounds, she was alert and able to communicate. Feeling better. Will discharge soon. She can go home to Home Health or Hospice. Will consult [facility] to ascertain which option family wants. Exam (Progress Note) - Constitutional Vitals: Period Temp Pulse Resp BP Sys/Collins Pulse Ox Last 24 Hr 96.9 F-98.3 F 71-83 17-20 127-162/56-80 91-99 Exam: General appearance: no acute distress - Respiratory Respiratory exam: Present: clear to auscultation - Cardiovascular Cardiovascular exam: Present: regular rate - GI/Abdominal GI/Abdominal exam: Present: normal bowel sounds, soft - Extremities Exam Extremities exam: Present: edema - Neurological Exam Neurological exam: Present: alert - Psychiatric Psychiatric exam: Present: normal mood and affect - Skin Skin exam: Present: warm, dry Results - Labs CBC & BMP: 08/28/16 05:42 08/28/16 05:42 Quality Measures - VTE Contraindication to Pharmacological VTE Prophylaxis: High Risk of Bleeding Specialty Discharge - Follow Up or Referrals Follow up with: Josue Foy MD [Physician] - 1 Month
[2016-08-28] MEDS: traZODone 50 MG TABLET PO SCH (20:47)
[2016-08-28] MEDS: DONEPEZIL 5 MG TABLET PO SCH (20:47)
[2016-08-29] MEDS: ALBUTEROL/IPRATROPIUM 3 ML NEB RESP TX SCH ×4 (00:06→18:57)
[2016-08-29] MEDS: SODIUM CHLORIDE 0.9% 1,000 ML IV SCH ×3 (06:07→20:30)
[2016-08-29 06:36] LABS: Basophils % 0.3 % (0.0-0.8); Eosinophils # 0.3 10*3/uL (0.0-0.87); Eosinophils % 2.2 % (0.00-10.9); Hematocrit 38.6 VOL% (35.7-47.0); Immature Granulocytes % 0.7 %; Lymphocytes # 2.8 10*3/uL (1.4-4.0); Lymphocytes % 18.9 % (21.3-54.2); Mean Corpuscular HGB Conc 31.1 GM/DL (32-36); Mean Corpuscular Hemoglobin 26 PG (27-34); Mean Corpuscular Volume 84.1 FL (87-102); Mean Platelet Volume 10.5 FL (9.6-12.0); Monocytes # 1.1 10*3/uL (0.11-0.8); Monocytes % 7.2 % (1.7-12.7); Neutrophils # 10.4 10*3/uL (1.4-7.4); Neutrophils % 70.7 % (38.7-73.9); Platelet Count 259 T/CUMM (130-400); Red Blood Count 4.59 MC/CUMM (3.8-5.5); Red Cell Distribution Width 15.6 % (9.3-17.3); White Blood Count 14.7 T/CUMM (4-12)
[2016-08-29] MEDS: LEVOTHYROXINE 150 MCG TABLET PO SCH (06:46)
[2016-08-29 07:13] LABS: Osmolality,Calculated 289.7 MOS/KG (273-304); Potassium 3.7 MMOL/L (3.5-5.1)
[2016-08-29] MEDS: FLUTICASONE 50 MCG NASAL SPRAY 16 GM BOTTLE BOTH NARES SCH ×2 (09:02→20:16)
[2016-08-29] MEDS: POLYETHYLENE GLYCOL POWDER 17 GM PACK PO SCH (09:02)
[2016-08-29] MEDS: MAGNESIUM HYDROXIDE SUSP 30 ML UDCUP PO PRN (09:02)
[2016-08-29] MEDS: TOBRAMYCIN 0.3% OPH SOLN 5 ML BOTTLE LEFT EYE SCH ×2 (09:02→20:17)
[2016-08-29] MEDS: TIMOLOL 0.5% OPH SOLN 5 ML BOTTLE BOTH EYES SCH (09:02)
[2016-08-29] MEDS: CALCIUM (CITRATE) 200 MG TABLET PO SCH (09:03)
[2016-08-29] MEDS: MEGESTROL 400 MG/10 ML UDCUP PO SCH ×2 (09:03→20:17)
[2016-08-29] MEDS: CETIRIZINE 10 MG TABLET PO SCH (09:07)
[2016-08-29] MEDS: DOCUSATE SODIUM 100 MG CAPSULE PO SCH ×2 (09:07→20:17)
[2016-08-29] MEDS: CITALOPRAM 40 MG TABLET PO SCH (09:07)
[2016-08-29] MEDS: PANTOPRAZOLE 40 MG TABLET PO SCH (09:07)
[2016-08-29] MEDS: POTASSIUM CHLORIDE 10 MEQ TABLET PO SCH (09:07)
[2016-08-29] MEDS: DESITIN 4OZ/NYSTATIN 15 GRAM MIXTURE PASTE TOP SCH ×2 (09:08→20:18)
[2016-08-29] MEDS: NYSTATIN POWDER 15 GM BOTTLE TOP SCH ×2 (09:08→20:18)
--- NOTE | 2016-08-29 10:24 | Gastrointestinal Progress Note ---
Assessment and Plan (1) Constipation Status: Chronic Assessment and plan: 08/29-No report of bowel movements. No c/o pain, nausea, vomiting. Possible discharge plans noted. Plan and addendum to follow by DR Campbell. 08/28-reports of constipation by daughter, who is not present during visit. Prior reports abdominal pain by patient since admission now resolved. KUB findings noted of increased stool volume in the colon. No record of colonoscopy noted at our facility database. Currently on MiraLAX and Colace. Plan an addendum to followed by Dr. Campbell. Current Visit: Yes Qualifiers: Constipation type: slow transit constipation Qualified Code(s): K59.01 - Slow transit constipation Gastroenterology - PN: Subj Interval history: CC: Constipation Pt is seen awake and alert. States she is feeling well today. Denies any abdominal pain, nausea or vomiting. She states she ate a good breakfast this morning. No bowel movements noted at this time. Abdomen is soft, nontender. No family is in room during visit today. ROS: Denies SOB or chest pain Exam (Progress Note) - Constitutional Vitals: Period Temp Pulse Resp BP Sys/Collins Pulse Ox Last 24 Hr 97.0 F-98.2 F 68-83 16-20 142-161/67-80 93-99 - Other Additional findings: General appearance: normal weight, no acute distress - Head Head exam: Present: normal inspection, normocephalic - Eye Eye exam: Present: other (Lids and conjunctive are unremarkable). Absent: scleral icterus - ENT ENT exam: Present: normal exam, normal oropharynx - Neck Neck exam: Present: normal inspection - Respiratory Respiratory exam: Present: clear to auscultation bilaterally. Absent: rales, rhonchi, wheezes - Cardiovascular Cardiovascular exam: Present: regular rate and rhythm. Absent: diastolic murmur , JVD, systolic murmur - GI/Abdominal GI/Abdominal exam: Present: normal bowel sounds, soft. Absent: ascites, distended, mass, organomegaly, tenderness - Extremities Exam Extremities exam: Present: normal inspection, full ROM - Back Exam Back exam: Present: normal inspection - Neurological Exam Neurological exam: Present: alert, altered - Psychiatric Psychiatric exam: Present: normal affect, normal mood - Skin Skin exam: Present: normal color, warm, dry Results - Labs CBC & BMP: 08/29/16 05:06 08/29/16 05:06 Lab Results: I have reviewed the past 24 hour labs Specialty Discharge - Follow Up or Referrals Follow up with: Josue Foy MD [Physician] - 10/01/16 10:00 am
[2016-08-29] MEDS ORDERED: FUROSEMIDE 20 MG/2 ML VIAL IV ONE (17:52)
[2016-08-29] MEDS ORDERED: ALBUTEROL/IPRATROPIUM 3 ML NEB RESP TX ONE (17:54)
[2016-08-29] MEDS: CARBIDOPA/LEVODOPA 25-100 MG TABLET PO SCH (18:24)
[2016-08-29] MEDS: TORSEMIDE 20 MG TABLET PO SCH (18:24)
[2016-08-29] MEDS: cefTRIAXone 1,000 MG in SODIUM CHLORIDE 0.9% 100 ML IV SCH (18:24)
--- NOTE | 2016-08-29 18:28 | Internal Med Progress Note ---
Assessment and Plan (1) COPD (chronic obstructive pulmonary disease) Status: Chronic Current Visit: Yes Qualifiers: COPD type: unspecified COPD Qualified Code(s): J44.9 - Chronic obstructive pulmonary disease, unspecified (2) Lower extremity edema Status: Chronic Current Visit: Yes (3) Pulmonary edema Status: Acute Current Visit: Yes Qualifiers: Chronicity: acute Qualified Code(s): J81.0 - Acute pulmonary edema (4) UTI (urinary tract infection) Status: Resolved Current Visit: Yes Qualifiers: Hematuria presence: without hematuria (5) Traumatic abrasion Problem details: surgical debridement Status: Acute Current Visit: Yes (6) Sundowning Status: Chronic Current Visit: Yes (7) Constipation Status: Chronic Current Visit: Yes Qualifiers: Constipation type: slow transit constipation Qualified Code(s): K59.01 - Slow transit constipation Internal Medicine - PN: Subj Interval history: Ms. Castillo is a 89 year old female patient of Dr. Cottrell with history of stroke , HTN, COPD, history of CHF episode, OA, dyslipidemia, who presented to ER with acute UTI and lower extremity wound sustained after a fall two weeks ago. She has had peripheral lymphedema over last several weeks. Dr. Robison will be consulted for wound care. , she had surgical debridement of lower extremity earlier today, and tolerated the procedure. Anticipate a quicker recovery at this point. Friday, she had a bad night last night with gas pain, according to the daughter. She has been having loose stools. Laying on her left side gave relief. She may be having GI distress from Zosyn, and it will be discontinued. She had owning last night, but seems to be calm at this time on rounds. Appears stable. Worsening , and will add Risperdal. Her left eye appears red with mattering and will start Tobramycin drops. Today, Friday, she appears to be feeling better and responded favorably. She seems to recognize individuals in the room. Will continue current treatment. Today, Friday, she was moaning while seen, but denied pain. The daughter in the room expressed interest in herbal remedies. Concerned about constipation and adding Milk of Mag. Eri AGOSTO and consult for Dr. Campbell. There is a status change. Hypotensive. Ordering blood cultures. Holding antihypertensive meds for now. She has had hypotensive drop a couple days ago. Also, increasing levothyroxine for elevated TSH. Nurse reported later that daughter refused blood cultures. Friday, on rounds, she was alert and able to communicate. Feeling better. Will discharge soon. She can go home to Home Health or Hospice. Will consult [facility] to ascertain which option family wants. , her lungs sounded wet. Discontinued fluids. Added one dose Lasix IV. Added a breathing treatment for now. Discharge will be delayed. Exam (Progress Note) - Constitutional Vitals: Period Temp Pulse Resp BP Sys/Collins Pulse Ox Last 24 Hr 97.4 F-98.6 F 68-89 16-20 142-190/67-81 90-99 Exam: General appearance: no acute distress but appears fatigued - Respiratory Respiratory exam: Present: rales and rhonchi bilaterally; breathing labored - Cardiovascular Cardiovascular exam: Present: regular rate - GI/Abdominal GI/Abdominal exam: Present: normal bowel sounds, soft - Extremities Exam Extremities exam: Present: edema - Neurological Exam Neurological exam: Present: alert - Psychiatric Psychiatric exam: Present: normal mood and affect - Skin Skin exam: Present: warm, dry Results - Labs CBC & BMP: 08/29/16 05:06 08/29/16 05:06 Quality Measures - VTE Contraindication to Pharmacological VTE Prophylaxis: High Risk of Bleeding Specialty Discharge - Follow Up or Referrals Follow up with: Josue Foy MD [Physician] - 10/01/16 10:00 am Lg Robison MD [Physician] - 09/16/16 9:00 am
--- NOTE | 2016-08-29 18:32 | General Surgery Progress Note ---
Assessment and Plan (1) Traumatic abrasion Problem details: surgical debridement Status: Acute Assessment and plan: Impression: 1. Traumatic wound of the left leg with hematoma 2. Urinary tract infection. Plan: Debridement with drainage of hematoma 08/28/2016. The wound continues to look good at this point time is going to take a while and continued wound care in order to get some healing and epithelialization over this area. They are the only other alternative would be a consideration of the skin graft at some point if it fails to show good epithelialization. She is currently a good care at least every other day to the wound to make sure that he does not try out that stays moist at this time while we get some healing to occur. I have to be clearly established before she leaves. 08/29/2016 Still awaiting plans for long-term care on this wound that the patient has. They are trying to arrange some sort of facility where this care can be administered to this wound. The wound continues to improve and will take some time to completely epithelialize over but with good care may be able to heal without team much difficulty. Current Visit: Yes Subjective Patient reports: Present: feels better, tolerating a regular diet, afebrile Exam - Constitutional Vitals: Period Temp Pulse Resp BP Sys/Collins Pulse Ox Last 24 Hr 97.4 F-98.6 F 68-89 16-20 142-190/67-81 90-99 General appearance: mild distress - Head Head exam: Present: normal inspection - Neck Neck exam: Present: normal inspection - Respiratory Respiratory exam: Present: rales - Cardiovascular Cardiovascular exam: Present: RRR - GI/Abdominal GI/Abdominal exam: Present: hypoactive bowel sounds, soft - Extremities Exam Extremities exam: Present: other (Wound on the left leg remains fairly clean with some slow progressive granulating tissue developing in the wound bed at this time.) - Neurological Exam Neurological exam: Present: alert, altered - Skin Skin exam: Present: normal color, warm, dry Results - Labs CBC & BMP: 08/29/16 05:06 08/29/16 05:06 Lab Results: I have reviewed the past 24 hour labs Quality Measures - VTE Contraindication to Pharmacological VTE Prophylaxis: High Risk of Bleeding Specialty Discharge - Follow Up or Referrals Follow up with: Josue Foy MD [Physician] - 10/01/16 10:00 am
[2016-08-29] MEDS: traZODone 50 MG TABLET PO SCH (20:17)
[2016-08-29] MEDS: DONEPEZIL 5 MG TABLET PO SCH (20:27)
[2016-08-30] MEDS: ALBUTEROL/IPRATROPIUM 3 ML NEB RESP TX SCH ×4 (00:14→19:43)
[2016-08-30] MEDS: LEVOTHYROXINE 150 MCG TABLET PO SCH (07:16)
--- NOTE | 2016-08-30 08:25 | General Surgery Progress Note ---
Assessment and Plan - Time spent with patient Time spent with patient: Less than 30 minutes (1) Hematoma of left lower extremity Status: Acute Assessment and plan: 08/30/2016 Progressing well from her left lower leg hematoma drainage. There is no clinical evidence of infection, and the wound seems to be healing rapidly. We will modify her wound care orders so that this can be managed more easily by her family and facility. She could be discharged any time from the surgical standpoint. We will plan to follow her up in about 3-4 weeks in our office. 08/27/2016 Tolerating dressing changes well. The drain has been removed, and we have an established protocol for every other day dressing changes. She should be able to transition now to either a home health situation versus an inpatient facility at any time. We do not feel she will need additional systemic antibiotics, just good local care and topicals. 08/26/16 Doing well from the wound standpoint. We will plan to remove the tae drain today and switch to a collagen product with silver. She should be fine to transition to QOD dressing changes. Her antibiotics will be reviewed and adjusted as per sensitivities. We will need to maintain light compression during the healing phase. 08/23/16 Stable post op evacuation of left lower leg hematoma. We will begin dressing changes today. If she can tolerate PT, it's OK to begin getting her up and having her do whatever she's able-certainly no restrictions on weight bearing, etc. We will await final cultures and look at her care options. Leaving the tae drain for now. Current Visit: Yes Subjective Patient reports: Present: no new complaints, other (Denies pain) Exam - Constitutional Vitals: Period Temp Pulse Resp BP Sys/Collins Pulse Ox Last 24 Hr 97.4 F-99.1 F 70-91 16-21 114-190/76-106 90-99 General appearance: no acute distress, disheveled, other (She is awake and alert this morning, with her daughter at her bedside. She denies pain, answers questions appropriately, and is in no apparent distress.) - GI/Abdominal GI/Abdominal exam: Present: soft. Absent: distended, tenderness - Extremities Exam Extremities exam: Present: other (Left lower leg wound is clean and granulating well. Is very superficial now and there is no evidence of recurrence of the hematoma. No edema, no erythema, no tenderness. I see no clinical evidence of infection at this time.) Results - Labs CBC & BMP: 08/29/16 05:06 08/29/16 05:06 Lab Results: I have reviewed the past 24 hour labs Quality Measures - VTE Contraindication to Pharmacological VTE Prophylaxis: High Risk of Bleeding Specialty Discharge - Follow Up or Referrals Follow up with: Josue Foy MD [Physician] - 10/01/16 10:00 am
[2016-08-30] MEDS: CALCIUM (CITRATE) 200 MG TABLET PO SCH (11:03)
[2016-08-30] MEDS: CITALOPRAM 40 MG TABLET PO SCH (11:03)
[2016-08-30] MEDS: DOCUSATE SODIUM 100 MG CAPSULE PO SCH (11:04)
[2016-08-30] MEDS: POLYETHYLENE GLYCOL POWDER 17 GM PACK PO SCH (11:05)
[2016-08-30] MEDS: POTASSIUM CHLORIDE 10 MEQ TABLET PO SCH (11:05)
[2016-08-30] MEDS: MEGESTROL 400 MG/10 ML UDCUP PO SCH (11:05)
[2016-08-30] MEDS: CETIRIZINE 10 MG TABLET PO SCH (11:06)
[2016-08-30] MEDS: PANTOPRAZOLE 40 MG TABLET PO SCH (11:06)
[2016-08-30] MEDS: TIMOLOL 0.5% OPH SOLN 5 ML BOTTLE BOTH EYES SCH (11:08)
[2016-08-30] MEDS: TOBRAMYCIN 0.3% OPH SOLN 5 ML BOTTLE LEFT EYE SCH (11:09)
[2016-08-30] MEDS: FLUTICASONE 50 MCG NASAL SPRAY 16 GM BOTTLE BOTH NARES SCH (11:09)
[2016-08-30] MEDS: DESITIN 4OZ/NYSTATIN 15 GRAM MIXTURE PASTE TOP SCH (11:18)
[2016-08-30] MEDS: NYSTATIN POWDER 15 GM BOTTLE TOP SCH (11:18)
--- NOTE | 2016-08-30 16:05 | Discharge Summary ---
Hospital Course - Hospital Course Hospital Course: Ms. Castillo is a 89 year old female patient of Dr. Cottrell with history of stroke , HTN, COPD, history of CHF episode, OA, dyslipidemia, who presented to ER with acute UTI and lower extremity wound sustained after a fall two weeks ago. She has had peripheral lymphedema over last several weeks. Dr. Robison will be consulted for wound care. She had surgical debridement of skiin wound. She has tolerated wound care very well. Family has decided to take her home to hospice care. However, she will follow-up with Dr. Robison for wound care. Lungs are clear again today. She was favorably responsive to diuresis. She will be discharged to [facility] assisted [facility]. Hospice care will be through [facility]. Diagnosis - Discharge Diagnosis (1) COPD (chronic obstructive pulmonary disease) Status: Chronic (2) Lower extremity edema Status: Chronic (3) Pulmonary edema Status: Resolved (4) UTI (urinary tract infection) Status: Resolved (5) Traumatic abrasion Status: Acute (6) Sundowning Status: Chronic (7) Constipation Status: Resolved Specialty Discharge - Follow Up or Referrals Follow up with: Josue Foy MD [Physician] - 10/01/16 10:00 am Lg Robison MD [Physician] - 09/16/16 9:00 am Discharge Plan - Discharge Data Disposition: Hospice - Home Condition at Discharge: Stable Discharge Diet: regular diet Activity: as per physical therapy (only if Hospice allows PT), increase activity as tolerated - Discharge Medications New Albuterol/Ipratropium Neb [Duoneb] 3 ml RESP TX RT Q6H #120 Calcium (Citrate) [Citracal] 400 mg PO DAILY tablet Magnesium Hydroxide Susp [Milk of Magnesia] 30 ml PO BID PRN #0 PRN Reason: Constipation Megestrol Liquid [Megace Liquid] 400 mg PO BID #60 Nystatin Powder [Mycostatin Powder] 1 applic TOP BID applic Skin Healing Oint (Aquaphor) [Aquaphor] 1 applic TOP PRN PRN #0 applic PRN Reason: Dry Skin Tobramycin 0.3% Oph Soln [Tobrex 0.3% Oph Soln] 2 drop LEFT EYE BID #1 bottle cloNIDine TAB [Catapres Tab] 0.1 mg PO BEDTIME #30 tablet risperiDONE TAB [RisperDAL TAB] 0.5 mg PO BEDTIME PRN #30 tablet PRN Reason: agitation traMADol TAB [Ultram] 50 mg PO Q6H PRN #30 tablet PRN Reason: Pain Acetaminophen Tab [Tylenol Tab] 650 mg PO Q6H PRN #0 tablet PRN Reason: Fever > 100.4 Or Headache Donepezil [Aricept] 5 mg PO BEDTIME #30 tablet NIFEdipine XL TAB [Procardia Xl] 30 mg PO DAILY #30 tablet cloNIDine TAB [Catapres Tab] 0.1 mg PO TID PRN #45 tablet PRN Reason: for SBP greater than 160 Continue Clotrimazole 1% Cream [Lotrimin 1% Cream] 1 applic TOP DAILY PRN PRN Reason: ANTIFUNGAL Betamethasone Linda 0.1% Cream [Valisone 0.1% Cream] 1 applic TOP DAILY PRN PRN Reason: Itching Trazodone HCl 50 mg PO BEDTIME Torsemide Tab [Demadex Tab] 20 mg PO DAILY W/SUPPER Potassium Chloride 1 tablet PO BID Polyethylene Glycol Powder [Miralax] 17 gm PO DAILY Levothyroxine Tab [Synthroid Tab] 125 mcg PO DAILY@0700 Docusate Sodium Cap [Colace Cap] 100 mg PO BID Citalopram [CeleXA] 40 mg PO DAILY Cetirizine Tab [ZyrTEC Tab] 10 mg PO DAILY Carbidopa/Levodopa [Carbidopa-Levodopa 25-100 Tab] 1 each PO DAILY W/SUPPER Timolol Maleate [Timolol 0.5% Oph Soln] 1 drop BOTH EYES QAM Omeprazole 20 mg PO DAILY Fluticasone 50 Mcg Nasal [place] [Flonase Nasal [place]] 1 spray BOTH NARES BID predniSONE TAB [PredniSONE] 10 mg PO DAILY #10 tablet Discontinued Oxybutynin Chloride 10 mg PO BID Neomyc/Polymyx/Dexam Oph Susp [Maxitrol Oph Susp] 1 drop BOTH EYES QID Meclizine [Antivert] 25 mg PO BID Gabapentin Cap/Tab [Neurontin Cap/Tab] 300 mg PO TID Ferrous Sulfate Tab [Feosol Original Tab] 325 mg PO DAILY guaiFENesin/CODEINE [Robitussin AC] 5 - 10 ml PO Q6H PRN PRN Reason: Cough Cyclobenzaprine HCl [Cyclobenzaprine HCl] 10 mg PO BID Indomethacin Cap [Indocin Cap] 25 mg PO TID #20 capsule - Follow Up or Referral Follow Up: Josue Foy MD [Physician] - 10/01/16 10:00 am Lg Robison MD [Physician] - 09/16/16 9:00 am Sarthak Cottrell MD [Physician] - - Forms/Instructions Additional Discharge Instructions: She can be discharged to [facility]ospice. Follow up appointments for doctors listed in discharge. She may need a nebulizer at [facility]. Follow wound care orders at [facility]. Exam - Constitutional Vitals: Period Temp Pulse Resp BP Sys/Collins Pulse Ox Last 24 Hr 98.0 F-99.1 F 70-91 16-21 114-190/78-106 95-100 Exam: General appearance: no acute distress - Respiratory Respiratory exam: Present: clear to auscultation - Cardiovascular Cardiovascular exam: Present: regular rate - GI/Abdominal GI/Abdominal exam: Present: normal bowel sounds, soft - Extremities Exam Extremities exam: Present: edema - Neurological Exam Neurological exam: Present: alert - Psychiatric Psychiatric exam: Present: normal mood and affect - Skin Skin exam: Present: warm, dry DS: Provider Date of admission: 08/20/16 17:32 Primary care physician: . No PCP Attending physician on admission: Dianne Hogan DO Consults: 08/21/16 18:16 Consult to Physician [CONS] Routine Comment: wound care Consulting Provider: Lg Robison Consulting Provider Notified: Yes When should Consulting Provider be notified: Now Person Notified: josephzain castrejon Date Notified: 08/22/16 Time Notified: 09:07 08/22/16 07:57 Consult to Anesthesiology [CONS] Routine Consulting Provider: Reason for Anesthesiology: Pre-op Clearance Consult Comment: MAC with local 08/22/16 12:07 Consult to Wound Care - [place] [CONS] Routine Reason for Wound Care: Wound Care Management Consult Comment: wound care to left leg 08/22/16 12:13 Consult to Physical Therapy [CONS] Routine Reason for Physical Therapy: Evaluate and Treat Start Therapy: Tomorrow Consult Comment: ambulate patient 08/25/16 17:21 Consult to Physician [CONS] Routine Comment: persistent confusion and aphasia Consulting Provider: Josue Foy 08/26/16 16:25 Consult to Wound Care - [place] [CONS] Routine Reason for Wound Care: Other Consult Comment: ROTATING BED 08/27/16 19:52 Consult to Physician [CONS] Routine Comment: abdominal pain/constipation/dementia Consulting Provider: Sarthak Campbell Consulting Provider Notified: Yes When should Consulting Provider be notified: Now Person Notified: bryan called Date Notified: 08/28/16 Time Notified: 10:15 Discharging clinician: Dianne Hogan DO Expected date of discharge: 08/30/16
[2016-08-30 16:59] VITALS: BP 155/77
[2016-08-30] MEDS: TORSEMIDE 20 MG TABLET PO SCH (17:08)
[2016-08-30] MEDS: CARBIDOPA/LEVODOPA 25-100 MG TABLET PO SCH (17:08)
[2016-08-30] MEDS: cefTRIAXone 1,000 MG in SODIUM CHLORIDE 0.9% 100 ML IV SCH (18:00)
== END 2016-08-30 18:55 | disposition hospice, home (50) | DRG 940 ==
LOC: EDUNIT# → EDBD → N.ED 15:16 → N.3E 17:32
PROVIDERS: ADMIT Internal Medicine; ATTEND Internal Medicine

== ENCOUNTER 2017-02-15 11:17 | Inpatient (IN) ==
[2017-02-15] MEDS ORDERED: CLINDAMYCIN 600 MG/4 ML VIAL IM STA (12:52)
[2017-02-15] MEDS ORDERED: CLINDAMYCIN 600 MG/4 ML VIAL ONE (12:53)
[2017-02-15] MEDS ORDERED: SODIUM CHLORIDE 0.9% 1,000 ML IV STA (13:47)
[2017-02-15 14:01] LABS: Basophils % 0.2 % (0.0-0.8); Eosinophils # 0.2 10*3/uL (0.0-0.87); Eosinophils % 1.2 % (0.00-10.9); Hematocrit 38.1 VOL% (35.7-47.0); Hemoglobin 11.9 GM/DL (12.0-16.0); Immature Granulocytes % 0.9 %; Immature Granulocytes Absolute 0.14 #; Lymphocytes # 2.1 10*3/uL (1.4-4.0); Lymphocytes % 12.9 % (21.3-54.2); Mean Corpuscular HGB Conc 31.2 GM/DL (32-36); Mean Corpuscular Hemoglobin 27 PG (27-34); Mean Corpuscular Volume 86.6 FL (87-102); Mean Platelet Volume 10.5 FL (9.6-12.0); Monocytes # 0.9 10*3/uL (0.11-0.8); Monocytes % 5.6 % (1.7-12.7); Neutrophils % 79.2 % (38.7-73.9); Platelet Count 246 T/CUMM (130-400); Red Cell Distribution Width 15.7 % (9.3-17.3); White Blood Count 16.4 T/CUMM (4-12)
[2017-02-15 14:15] LABS: Apearance,Urine CLOUDY (Clear); Bacteria,Urine Moderate /HPF (Few); Bilirubin,Urine Negative (Negative); Blood, Urine Small mg/dL (Negative); Glucose,Urine (UA) Negative (Negative); Ketones,Urine Negative (Negative); Nitrite,Urine Negative (Negative); Protein,Urine 30 MG/DL; RBC,Urine 6 /HPF (0-4); Urine Color Yellow (Yellow); Urine Urobilinogen < 2.0 EU/DL (0.2-1.0); WBC,Urine 1005 /HPF (0-6)
[2017-02-15 14:17] LABS: PT Patient Result 10.7 SECS; Partial Thromboplastin Time 25.9 SECS (0-40)
[2017-02-15 14:25] LABS: Alanine Aminotransferase < 6 U/L (13-56); Albumin 2.9 G/DL (3.4-5.0); Alkaline Phosphatase 87 U/L (45-117); Aspartate Amino Transferase 20 U/L (0-37); Blood Urea Nitrogen 35 MG/DL (7-18); Calcium 8.9 MG/DL (8.5-10.1); Glucose 91 MG/DL (74-106); Osmolality,Calculated 293.8 MOS/KG (273-304); Potassium 3.7 MMOL/L (3.5-5.1); Sodium 144 MMOL/L (136-145); Total Protein 6.7 G/DL (6.4-8.3)
[2017-02-15] MEDS ORDERED: LEVOFLOXACIN INJ 250 MG in PREMIX 1 EACH IV STA (15:25)
[2017-02-15] MEDS ORDERED: traMADol 50 MG TABLET PO PRN (17:04)
[2017-02-15] MEDS ORDERED: ALBUTEROL/IPRATROPIUM 3 ML NEB RESP TX PRN (18:41)
[2017-02-15] MEDS: ALBUTEROL 2.5 MG/3 ML NEB RESP TX SCH (20:18)
[2017-02-15] MEDS: BUDESONIDE/FORMOTEROL 80-4.5 INHALER 6.9 GM INH SCH (21:12)
[2017-02-15] MEDS: DONEPEZIL 5 MG TABLET PO SCH (21:12)
[2017-02-15] MEDS: traZODone 50 MG TABLET PO SCH (21:12)
[2017-02-15] MEDS: cloNIDine 0.1 MG TABLET PO SCH (21:12)
[2017-02-15] MEDS: FLUTICASONE/SALMETEROL 250-50 DISKUS 14 DOSE INH SCH (21:12)
[2017-02-15] MEDS: GABAPENTIN 300 MG CAPSULE PO SCH (21:12)
[2017-02-16 05:13] LABS: Basophils % 0.2 % (0.0-0.8); Eosinophils # 0.3 10*3/uL (0.0-0.87); Eosinophils % 2.3 % (0.00-10.9); Hematocrit 31.1 VOL% (35.7-47.0); Hemoglobin 9.9 GM/DL (12.0-16.0); Immature Granulocytes % 1.2 %; Immature Granulocytes Absolute 0.13 #; Lymphocytes # 2.3 10*3/uL (1.4-4.0); Lymphocytes % 20.7 % (21.3-54.2); Mean Corpuscular HGB Conc 31.8 GM/DL (32-36); Mean Corpuscular Hemoglobin 27 PG (27-34); Mean Corpuscular Volume 85.4 FL (87-102); Mean Platelet Volume 11.3 FL (9.6-12.0); Monocytes # 0.9 10*3/uL (0.11-0.8); Monocytes % 8.1 % (1.7-12.7); Neutrophils # 7.4 10*3/uL (1.4-7.4); Neutrophils % 67.5 % (38.7-73.9); Platelet Count 213 T/CUMM (130-400); Red Blood Count 3.64 MC/CUMM (3.8-5.5); Red Cell Distribution Width 15.5 % (9.3-17.3)
[2017-02-16 05:57] LABS: Calcium 8.4 MG/DL (8.5-10.1); Free T4 (Free Thyroxine) 1.62 NG/DL (0.76-1.46); Magnesium 2.4 MG/DL (1.8-2.4); Osmolality,Calculated 295.7 MOS/KG (273-304); Potassium 3.8 MMOL/L (3.5-5.1); Thyroid Stimulating Hormone 0.197 uIU/ml (0.358-3.74)
[2017-02-16] MEDS: LEVOTHYROXINE 125 MCG TABLET PO SCH (06:00)
[2017-02-16] MEDS ORDERED: CLINDAMYCIN INJ 900 MG in PREMIX 1 EACH IV ONE (06:00)
[2017-02-16] MEDS ORDERED: BACITRACIN OINT 0.9 GM PACK TOP ONE (06:45)
[2017-02-16] MEDS: ALBUTEROL 2.5 MG/3 ML NEB RESP TX SCH ×2 (07:13→19:10)
[2017-02-16] MEDS ORDERED: TRANEXAMIC ACID 1,000 MG/10 ML VIAL IV ONE (08:13)
[2017-02-16] MEDS ORDERED: ROPIVACAINE 0.5% 30 ML VIAL ONE (08:50)
[2017-02-16] MEDS: FLUTICASONE 50 MCG NASAL SPRAY 16 GM BOTTLE BOTH NARES SCH ×2 (09:00→17:56)
[2017-02-16] MEDS: BUDESONIDE/FORMOTEROL 80-4.5 INHALER 6.9 GM INH SCH (09:00)
[2017-02-16] MEDS: TOBRAMYCIN 0.3% OPH SOLN 5 ML BOTTLE LEFT EYE SCH ×2 (09:00→17:57)
[2017-02-16] MEDS: POTASSIUM CHLORIDE 10 MEQ TABLET PO SCH ×2 (09:00→17:56)
[2017-02-16] MEDS: MEGESTROL 400 MG/10 ML UDCUP PO SCH ×2 (09:00→17:57)
[2017-02-16] MEDS: DOCUSATE SODIUM 100 MG CAPSULE PO SCH ×2 (09:00→17:56)
[2017-02-16] MEDS ORDERED: MORPHINE 2 MG/1 ML SYRINGE IV PRN (09:31)
[2017-02-16] MEDS ORDERED: oxyCODONE IR 5 MG TABLET PO PRN (09:31)
[2017-02-16] MEDS ORDERED: ONDANSETRON 4 MG/2 ML VIAL IV PRN (09:31)
[2017-02-16] MEDS ORDERED: SODIUM CHLORIDE 0.9% 100 ML IV ONE (10:13)
[2017-02-16] MEDS ORDERED: ONDANSETRON 4 MG/2 ML VIAL ONE (10:13)
[2017-02-16] MEDS ORDERED: PROPOFOL 200 MG/20 ML VIAL IV ONE (10:13)
[2017-02-16] MEDS ORDERED: ETOMIDATE 20 MG/10 ML VIAL IV ONE (10:13)
[2017-02-16] MEDS ORDERED: SEVOFLURANE 1 UNIT/15 MINUTE INH ONE (10:13)
[2017-02-16] MEDS ORDERED: fentaNYL 100 MCG/2 ML VIAL ONE (10:13)
[2017-02-16] MEDS ORDERED: ALBUTEROL/IPRATROPIUM 3 ML NEB RESP TX ONE (10:21)
[2017-02-16] MEDS ORDERED: LEVOFLOXACIN INJ 250 MG in PREMIX 1 EACH IV SCH (12:00)
[2017-02-16] MEDS: CLINDAMYCIN INJ 900 MG in PREMIX 1 EACH IV SCH (14:17)
[2017-02-16] MEDS: FLUTICASONE/SALMETEROL 250-50 DISKUS 14 DOSE INH SCH (14:20)
[2017-02-16] MEDS: CITALOPRAM 40 MG TABLET PO SCH (14:22)
[2017-02-16] MEDS: CALCIUM (CITRATE) 200 MG TABLET PO SCH (14:22)
[2017-02-16] MEDS: MULTIVITAMIN (CENTRUM) TABLET PO SCH (14:22)
[2017-02-16] MEDS: POLYETHYLENE GLYCOL POWDER 17 GM PACK PO SCH (14:27)
[2017-02-16] MEDS: GABAPENTIN 300 MG CAPSULE PO SCH (14:28)
[2017-02-16] MEDS: PANTOPRAZOLE 40 MG TABLET PO SCH (14:29)
[2017-02-16] MEDS: CARBIDOPA/LEVODOPA 25-100 MG TABLET PO SCH (14:29)
[2017-02-16] MEDS: TIMOLOL 0.5% OPH SOLN 5 ML BOTTLE BOTH EYES SCH (14:30)
[2017-02-16] MEDS: CETIRIZINE 10 MG TABLET PO SCH (14:30)
[2017-02-16] MEDS: ACETAMINOPHEN 500 MG TABLET PO SCH ×2 (14:34→20:11)
[2017-02-16] MEDS: KETOROLAC 15 MG/1 ML VIAL IV SCH ×2 (14:50→20:10)
[2017-02-16] MEDS: LEVOFLOXACIN INJ 250 MG in PREMIX 1 EACH IV SCH (17:54)
[2017-02-16] MEDS: TORSEMIDE 20 MG TABLET PO SCH (17:56)
[2017-02-17] MEDS: DEXT 5% LACT RING KCL 20 MEQ 20 MEQ/1,000 ML BAG IV SCH (02:40)
[2017-02-17] MEDS: cloNIDine 0.1 MG TABLET PO SCH ×2 (02:41→20:09)
[2017-02-17] MEDS: traZODone 50 MG TABLET PO SCH ×2 (02:41→20:10)
[2017-02-17] MEDS: DONEPEZIL 5 MG TABLET PO SCH ×2 (02:41→20:10)
[2017-02-17] MEDS: FLUTICASONE/SALMETEROL 250-50 DISKUS 14 DOSE INH SCH ×3 (02:41→20:15)
[2017-02-17] MEDS: GABAPENTIN 300 MG CAPSULE PO SCH ×3 (02:42→20:09)
[2017-02-17] MEDS: BUDESONIDE/FORMOTEROL 80-4.5 INHALER 6.9 GM INH SCH ×3 (02:42→20:15)
[2017-02-17] MEDS: FONDAPARINUX 2.5 MG/0.5 ML SYRINGE SUBCUT SCH (03:08)
[2017-02-17 07:17] LABS: Basophils % 0.1 % (0.0-0.8); Eosinophils # 0.3 10*3/uL (0.0-0.87); Eosinophils % 1.8 % (0.00-10.9); Hematocrit 27.6 VOL% (35.7-47.0); Hemoglobin 8.5 GM/DL (12.0-16.0); Immature Granulocytes % 1.2 %; Immature Granulocytes Absolute 0.19 #; Lymphocytes # 2.5 10*3/uL (1.4-4.0); Lymphocytes % 16.2 % (21.3-54.2); Mean Corpuscular HGB Conc 30.8 GM/DL (32-36); Mean Corpuscular Hemoglobin 27 PG (27-34); Mean Corpuscular Volume 87.3 FL (87-102); Mean Platelet Volume 11.1 FL (9.6-12.0); Monocytes # 1.1 10*3/uL (0.11-0.8); Monocytes % 7.2 % (1.7-12.7); Neutrophils # 11.4 10*3/uL (1.4-7.4); Neutrophils % 73.5 % (38.7-73.9); Platelet Count 203 T/CUMM (130-400); Red Blood Count 3.16 MC/CUMM (3.8-5.5); Red Cell Distribution Width 15.9 % (9.3-17.3); White Blood Count 15.5 T/CUMM (4-12)
[2017-02-17] MEDS: LEVOTHYROXINE 125 MCG TABLET PO SCH (07:20)
[2017-02-17] MEDS: ACETAMINOPHEN 500 MG TABLET PO SCH ×2 (07:20→09:31)
[2017-02-17] MEDS: KETOROLAC 15 MG/1 ML VIAL IV SCH ×2 (07:22→11:38)
[2017-02-17] MEDS: ALBUTEROL 2.5 MG/3 ML NEB RESP TX SCH (07:24)
[2017-02-17 07:41] LABS: Calcium 8.3 MG/DL (8.5-10.1); Osmolality,Calculated 296.7 MOS/KG (273-304); Potassium 4.6 MMOL/L (3.5-5.1)
[2017-02-17] MEDS: MULTIVITAMIN (CENTRUM) TABLET PO SCH (11:38)
[2017-02-17] MEDS: CALCIUM (CITRATE) 200 MG TABLET PO SCH (11:38)
[2017-02-17] MEDS: CITALOPRAM 40 MG TABLET PO SCH (11:38)
[2017-02-17] MEDS: POTASSIUM CHLORIDE 10 MEQ TABLET PO SCH ×2 (11:39→19:39)
[2017-02-17] MEDS: FLUTICASONE 50 MCG NASAL SPRAY 16 GM BOTTLE BOTH NARES SCH ×2 (11:39→17:06)
[2017-02-17] MEDS: DOCUSATE SODIUM 100 MG CAPSULE PO SCH ×2 (11:39→19:38)
[2017-02-17] MEDS: PANTOPRAZOLE 40 MG TABLET PO SCH (11:40)
[2017-02-17] MEDS: MEGESTROL 400 MG/10 ML UDCUP PO SCH ×2 (11:40→19:39)
[2017-02-17] MEDS: POLYETHYLENE GLYCOL POWDER 17 GM PACK PO SCH (11:40)
[2017-02-17] MEDS: TOBRAMYCIN 0.3% OPH SOLN 5 ML BOTTLE LEFT EYE SCH ×2 (11:41→17:07)
[2017-02-17] MEDS: CARBIDOPA/LEVODOPA 25-100 MG TABLET PO SCH (11:41)
[2017-02-17] MEDS: TIMOLOL 0.5% OPH SOLN 5 ML BOTTLE BOTH EYES SCH (11:41)
[2017-02-17] MEDS: CETIRIZINE 10 MG TABLET PO SCH (11:41)
[2017-02-17] MEDS: oxyCODONE IR 5 MG TABLET PO PRN (17:19)
[2017-02-17] MEDS: ALBUTEROL/IPRATROPIUM 3 ML NEB RESP TX SCH (19:36)
[2017-02-17] MEDS: TORSEMIDE 20 MG TABLET PO SCH (19:38)
[2017-02-17] MEDS: LEVOFLOXACIN INJ 250 MG in PREMIX 1 EACH IV SCH (19:40)
[2017-02-17] MEDS ORDERED: LEVOFLOXACIN 250 MG TABLET PO SCH (21:00)
[2017-02-17] MEDS ORDERED: SODIUM CHLORIDE 0.9% 1,000 ML IV PRN (23:09)
[2017-02-17] MEDS ORDERED: CEFUROXIME 250 MG TABLET PO ONE (23:59)
[2017-02-18] MEDS: MAGNESIUM HYDROXIDE SUSP 30 ML UDCUP PO PRN ×2 (00:10→21:50)
[2017-02-18] MEDS: BUDESONIDE 0.25 MG/2 ML NEB RESP TX SCH ×3 (00:27→18:45)
[2017-02-18] MEDS: methylPREDNISolone SOD SUC 40 MG/1 ML VIAL IV SCH ×2 (00:27→11:50)
[2017-02-18] MEDS: ALBUTEROL/IPRATROPIUM 3 ML NEB RESP TX SCH ×7 (00:27→22:23)
[2017-02-18] MEDS: cefTRIAXone 500 MG in SYRINGE 1 EACH IV SCH (00:52)
[2017-02-18] MEDS: ALBUTEROL 2.5 MG/3 ML NEB RESP TX SCH (01:08)
[2017-02-18 09:56] LABS: Calcium 8.2 MG/DL (8.5-10.1); Osmolality,Calculated 283.7 MOS/KG (273-304); Potassium 4.7 MMOL/L (3.5-5.1)
[2017-02-18 10:00] LABS: Basophils % 0.1 % (0.0-0.8); Eosinophils # 0.3 10*3/uL (0.0-0.87); Eosinophils % 1.9 % (0.00-10.9); Hematocrit 28.3 VOL% (35.7-47.0); Hemoglobin 8.9 GM/DL (12.0-16.0); Immature Granulocytes % 2.1 %; Immature Granulocytes Absolute 0.32 #; Lymphocytes # 2.9 10*3/uL (1.4-4.0); Lymphocytes % 18.6 % (21.3-54.2); Mean Corpuscular HGB Conc 31.4 GM/DL (32-36); Mean Corpuscular Hemoglobin 27 PG (27-34); Mean Corpuscular Volume 86.3 FL (87-102); Mean Platelet Volume 11.5 FL (9.6-12.0); Monocytes # 1.1 10*3/uL (0.11-0.8); Monocytes % 6.9 % (1.7-12.7); Neutrophils % 70.4 % (38.7-73.9); Platelet Count 211 T/CUMM (130-400); Red Blood Count 3.28 MC/CUMM (3.8-5.5); Red Cell Distribution Width 15.9 % (9.3-17.3); White Blood Count 15.6 T/CUMM (4-12)
[2017-02-18] MEDS: FONDAPARINUX 2.5 MG/0.5 ML SYRINGE SUBCUT SCH (10:16)
[2017-02-18] MEDS: POLYETHYLENE GLYCOL POWDER 17 GM PACK PO SCH (10:25)
[2017-02-18] MEDS: CITALOPRAM 40 MG TABLET PO SCH (10:26)
[2017-02-18] MEDS: MULTIVITAMIN (CENTRUM) TABLET PO SCH (10:27)
[2017-02-18] MEDS: DOCUSATE SODIUM 100 MG CAPSULE PO SCH ×2 (10:27→16:52)
[2017-02-18] MEDS: CARBIDOPA/LEVODOPA 25-100 MG TABLET PO SCH (10:27)
[2017-02-18] MEDS: FERROUS SULFATE 325 MG TABLET PO SCH ×2 (10:27→21:50)
[2017-02-18] MEDS: CALCIUM (CITRATE) 200 MG TABLET PO SCH (10:28)
[2017-02-18] MEDS: CETIRIZINE 10 MG TABLET PO SCH (10:28)
[2017-02-18] MEDS: POTASSIUM CHLORIDE 10 MEQ TABLET PO SCH ×2 (10:28→16:52)
[2017-02-18] MEDS: PANTOPRAZOLE 40 MG TABLET PO SCH (10:29)
[2017-02-18] MEDS: MEGESTROL 400 MG/10 ML UDCUP PO SCH ×2 (10:30→16:53)
[2017-02-18] MEDS: FLUTICASONE 50 MCG NASAL SPRAY 16 GM BOTTLE BOTH NARES SCH ×2 (10:34→16:53)
[2017-02-18] MEDS: TIMOLOL 0.5% OPH SOLN 5 ML BOTTLE BOTH EYES SCH (10:35)
[2017-02-18] MEDS: TOBRAMYCIN 0.3% OPH SOLN 5 ML BOTTLE LEFT EYE SCH ×2 (10:36→16:53)
[2017-02-18] MEDS: FLUTICASONE/SALMETEROL 250-50 DISKUS 14 DOSE INH SCH ×2 (10:38→21:50)
[2017-02-18] MEDS: LEVOTHYROXINE 100 MCG TABLET PO SCH (11:20)
[2017-02-18] MEDS: TORSEMIDE 20 MG TABLET PO SCH (16:53)
[2017-02-18] MEDS: oxyCODONE IR 5 MG TABLET PO PRN (19:14)
[2017-02-18] MEDS: traZODone 50 MG TABLET PO SCH (21:50)
[2017-02-18] MEDS: GABAPENTIN 300 MG CAPSULE PO SCH (21:50)
[2017-02-18] MEDS: DONEPEZIL 5 MG TABLET PO SCH (21:50)
[2017-02-18] MEDS: cloNIDine 0.1 MG TABLET PO SCH (21:50)
[2017-02-19] MEDS: cefTRIAXone 500 MG in SYRINGE 1 EACH IV SCH ×2 (01:02→23:17)
[2017-02-19] MEDS: methylPREDNISolone SOD SUC 40 MG/1 ML VIAL IV SCH ×3 (01:10→23:14)
[2017-02-19] MEDS: ALBUTEROL/IPRATROPIUM 3 ML NEB RESP TX SCH ×5 (02:38→20:01)
[2017-02-19] MEDS: FONDAPARINUX 2.5 MG/0.5 ML SYRINGE SUBCUT SCH (03:12)
[2017-02-19 04:59] LABS: Basophils % 0.2 % (0.0-0.8); Eosinophils # 0.1 10*3/uL (0.0-0.87); Eosinophils % 0.8 % (0.00-10.9); Hematocrit 35.3 VOL% (35.7-47.0); Hemoglobin 11.6 GM/DL (12.0-16.0); Immature Granulocytes % 3.3 %; Immature Granulocytes Absolute 0.48 #; Lymphocytes # 1.5 10*3/uL (1.4-4.0); Lymphocytes % 10.1 % (21.3-54.2); Mean Corpuscular HGB Conc 32.9 GM/DL (32-36); Mean Corpuscular Hemoglobin 28 PG (27-34); Mean Platelet Volume 11.5 FL (9.6-12.0); Monocytes # 0.4 10*3/uL (0.11-0.8); Monocytes % 2.7 % (1.7-12.7); Neutrophils # 12.2 10*3/uL (1.4-7.4); Neutrophils % 82.9 % (38.7-73.9); Platelet Count 233 T/CUMM (130-400); Red Cell Distribution Width 15.4 % (9.3-17.3); White Blood Count 14.8 T/CUMM (4-12)
[2017-02-19] MEDS: LEVOTHYROXINE 100 MCG TABLET PO SCH (05:57)
[2017-02-19] MEDS ORDERED: MEPERIDINE 50 MG/1 ML VIAL IM ONE (07:00)
[2017-02-19] MEDS ORDERED: PROMETHAZINE 25 MG/1 ML VIAL IM ONE (07:00)
[2017-02-19] MEDS ORDERED: LIDOCAINE 2% 20 ML VIAL RESP TX ONE (07:30)
[2017-02-19] MEDS ORDERED: LIDOCAINE 1% 20 ML VIAL MISC INJ ONE (07:30)
[2017-02-19] MEDS ORDERED: LIDOCAINE 2% VISCOUS 100 ML BOTTLE SWISH/SPIT ONE (07:30)
[2017-02-19] MEDS: CLINDAMYCIN INJ 900 MG in PREMIX 1 EACH IV SCH (07:35)
[2017-02-19] MEDS: FLUTICASONE/SALMETEROL 250-50 DISKUS 14 DOSE INH SCH ×2 (08:24→21:14)
[2017-02-19 09:10] LABS: Calcium 8.6 MG/DL (8.5-10.1); Osmolality,Calculated 282.8 MOS/KG (273-304)
[2017-02-19] MEDS: POTASSIUM CHLORIDE 10 MEQ TABLET PO SCH ×2 (11:14→16:15)
[2017-02-19] MEDS: MULTIVITAMIN (CENTRUM) TABLET PO SCH (11:15)
[2017-02-19] MEDS: CALCIUM (CITRATE) 200 MG TABLET PO SCH (11:15)
[2017-02-19] MEDS: CARBIDOPA/LEVODOPA 25-100 MG TABLET PO SCH (11:15)
[2017-02-19] MEDS: CETIRIZINE 10 MG TABLET PO SCH (11:15)
[2017-02-19] MEDS: FERROUS SULFATE 325 MG TABLET PO SCH ×2 (11:15→21:13)
[2017-02-19] MEDS: CITALOPRAM 40 MG TABLET PO SCH (11:15)
[2017-02-19] MEDS: TIMOLOL 0.5% OPH SOLN 5 ML BOTTLE BOTH EYES SCH (11:16)
[2017-02-19] MEDS: MEGESTROL 400 MG/10 ML UDCUP PO SCH ×2 (11:16→16:16)
[2017-02-19] MEDS: POLYETHYLENE GLYCOL POWDER 17 GM PACK PO SCH (11:16)
[2017-02-19] MEDS: TOBRAMYCIN 0.3% OPH SOLN 5 ML BOTTLE LEFT EYE SCH ×2 (11:16→16:16)
[2017-02-19] MEDS: DOCUSATE SODIUM 100 MG CAPSULE PO SCH ×2 (11:16→16:15)
[2017-02-19] MEDS: PANTOPRAZOLE 40 MG TABLET PO SCH (11:16)
[2017-02-19] MEDS: FLUTICASONE 50 MCG NASAL SPRAY 16 GM BOTTLE BOTH NARES SCH ×2 (11:17→16:16)
[2017-02-19] MEDS: BUDESONIDE 0.25 MG/2 ML NEB RESP TX SCH ×3 (11:32→20:01)
[2017-02-19] MEDS: TORSEMIDE 20 MG TABLET PO SCH (16:15)
[2017-02-19] MEDS: traZODone 50 MG TABLET PO SCH (21:13)
[2017-02-19] MEDS: GABAPENTIN 300 MG CAPSULE PO SCH (21:13)
[2017-02-19] MEDS: DONEPEZIL 5 MG TABLET PO SCH (21:13)
[2017-02-19] MEDS: oxyCODONE IR 5 MG TABLET PO PRN (23:44)
[2017-02-20] MEDS: ALBUTEROL/IPRATROPIUM 3 ML NEB RESP TX SCH ×7 (01:07→23:38)
[2017-02-20] MEDS: FONDAPARINUX 2.5 MG/0.5 ML SYRINGE SUBCUT SCH (03:32)
[2017-02-20] MEDS: LEVOTHYROXINE 100 MCG TABLET PO SCH (05:36)
[2017-02-20] MEDS: MAGNESIUM HYDROXIDE SUSP 30 ML UDCUP PO PRN (05:36)
[2017-02-20 05:52] LABS: Basophils % 0.3 % (0.0-0.8); Eosinophils % 0.1 % (0.00-10.9); Hematocrit 34.5 VOL% (35.7-47.0); Hemoglobin 11.5 GM/DL (12.0-16.0); Immature Granulocytes % 2.7 %; Immature Granulocytes Absolute 0.39 #; Lymphocytes # 1.5 10*3/uL (1.4-4.0); Lymphocytes % 10.1 % (21.3-54.2); Mean Corpuscular HGB Conc 33.3 GM/DL (32-36); Mean Corpuscular Hemoglobin 28 PG (27-34); Mean Corpuscular Volume 84.1 FL (87-102); Monocytes # 0.5 10*3/uL (0.11-0.8); Monocytes % 3.4 % (1.7-12.7); Neutrophils # 12.2 10*3/uL (1.4-7.4); Neutrophils % 83.4 % (38.7-73.9); Platelet Count 282 T/CUMM (130-400); Red Cell Distribution Width 15.5 % (9.3-17.3); White Blood Count 14.6 T/CUMM (4-12)
[2017-02-20 06:20] LABS: Calcium 8.8 MG/DL (8.5-10.1); Osmolality,Calculated 289.4 MOS/KG (273-304); Potassium 4.4 MMOL/L (3.5-5.1)
[2017-02-20] MEDS: BUDESONIDE 0.25 MG/2 ML NEB RESP TX SCH ×2 (07:14→19:45)
[2017-02-20] MEDS: DOCUSATE SODIUM 100 MG CAPSULE PO SCH ×2 (09:29→17:35)
[2017-02-20] MEDS: FLUTICASONE 50 MCG NASAL SPRAY 16 GM BOTTLE BOTH NARES SCH ×2 (09:29→17:36)
[2017-02-20] MEDS: POLYETHYLENE GLYCOL POWDER 17 GM PACK PO SCH (09:29)
[2017-02-20] MEDS: CITALOPRAM 40 MG TABLET PO SCH (09:29)
[2017-02-20] MEDS: MEGESTROL 400 MG/10 ML UDCUP PO SCH ×2 (09:29→17:35)
[2017-02-20] MEDS: CARBIDOPA/LEVODOPA 25-100 MG TABLET PO SCH (09:30)
[2017-02-20] MEDS: PANTOPRAZOLE 40 MG TABLET PO SCH (09:30)
[2017-02-20] MEDS: POTASSIUM CHLORIDE 10 MEQ TABLET PO SCH ×2 (09:30→17:35)
[2017-02-20] MEDS: FERROUS SULFATE 325 MG TABLET PO SCH ×2 (09:30→21:09)
[2017-02-20] MEDS: MULTIVITAMIN (CENTRUM) TABLET PO SCH (09:30)
[2017-02-20] MEDS: CETIRIZINE 10 MG TABLET PO SCH (09:30)
[2017-02-20] MEDS: CALCIUM (CITRATE) 200 MG TABLET PO SCH (09:30)
[2017-02-20] MEDS: TIMOLOL 0.5% OPH SOLN 5 ML BOTTLE BOTH EYES SCH (09:31)
[2017-02-20] MEDS: TOBRAMYCIN 0.3% OPH SOLN 5 ML BOTTLE LEFT EYE SCH ×2 (09:31→17:36)
[2017-02-20] MEDS: FLUTICASONE/SALMETEROL 250-50 DISKUS 14 DOSE INH SCH ×2 (09:45→21:09)
[2017-02-20] MEDS: methylPREDNISolone SOD SUC 40 MG/1 ML VIAL IV SCH ×2 (11:55→23:30)
[2017-02-20] MEDS: TORSEMIDE 20 MG TABLET PO SCH (17:35)
[2017-02-20] MEDS ORDERED: LACTULOSE 20 GM/30 ML UDCUP PO ONE (18:22)
[2017-02-20] MEDS: DONEPEZIL 5 MG TABLET PO SCH (21:08)
[2017-02-20] MEDS: traZODone 50 MG TABLET PO SCH (21:08)
[2017-02-20] MEDS: GABAPENTIN 300 MG CAPSULE PO SCH (21:09)
[2017-02-20] MEDS: cefTRIAXone 500 MG in SYRINGE 1 EACH IV SCH (23:32)
[2017-02-21] MEDS: FONDAPARINUX 2.5 MG/0.5 ML SYRINGE SUBCUT SCH (02:53)
[2017-02-21] MEDS: ALBUTEROL/IPRATROPIUM 3 ML NEB RESP TX SCH ×6 (03:05→23:26)
[2017-02-21 05:41] LABS: Basophils # 0.1 10*3/uL (0.0-0.2); Basophils % 0.7 % (0.0-0.8); Eosinophils # 0.1 10*3/uL (0.0-0.87); Eosinophils % 0.3 % (0.00-10.9); Hematocrit 40.4 VOL% (35.7-47.0); Hemoglobin 12.9 GM/DL (12.0-16.0); Immature Granulocytes % 5.1 %; Immature Granulocytes Absolute 0.78 #; Lymphocytes # 1.9 10*3/uL (1.4-4.0); Lymphocytes % 12.2 % (21.3-54.2); Mean Corpuscular HGB Conc 31.9 GM/DL (32-36); Mean Corpuscular Hemoglobin 27 PG (27-34); Mean Corpuscular Volume 85.1 FL (87-102); Mean Platelet Volume 11.1 FL (9.6-12.0); Monocytes # 0.6 10*3/uL (0.11-0.8); Monocytes % 4.1 % (1.7-12.7); Neutrophils # 11.8 10*3/uL (1.4-7.4); Neutrophils % 77.6 % (38.7-73.9); Platelet Count 323 T/CUMM (130-400); Red Blood Count 4.75 MC/CUMM (3.8-5.5); Red Cell Distribution Width 15.8 % (9.3-17.3); White Blood Count 15.2 T/CUMM (4-12)
[2017-02-21 06:13] LABS: Giant Platelets Few; Hypochromasia 1+; Lymphocytes 18 % (20-55); Platelet Estimate Adequate; Segmented Neutrophils 79 % (50-85); Total Cells Counted 100
[2017-02-21] MEDS: LEVOTHYROXINE 100 MCG TABLET PO SCH (06:22)
[2017-02-21 06:26] LABS: Calcium 8.9 MG/DL (8.5-10.1); Osmolality,Calculated 292.4 MOS/KG (273-304); Potassium 4.6 MMOL/L (3.5-5.1)
[2017-02-21] MEDS: BUDESONIDE 0.25 MG/2 ML NEB RESP TX SCH ×2 (08:05→20:07)
[2017-02-21] MEDS: PANTOPRAZOLE 40 MG TABLET PO SCH (09:10)
[2017-02-21] MEDS: DOCUSATE SODIUM 100 MG CAPSULE PO SCH ×2 (09:10→17:51)
[2017-02-21] MEDS: CALCIUM (CITRATE) 200 MG TABLET PO SCH (09:10)
[2017-02-21] MEDS: CITALOPRAM 40 MG TABLET PO SCH (09:10)
[2017-02-21] MEDS: POTASSIUM CHLORIDE 10 MEQ TABLET PO SCH ×2 (09:10→17:52)
[2017-02-21] MEDS: FERROUS SULFATE 325 MG TABLET PO SCH ×2 (09:11→20:45)
[2017-02-21] MEDS: FLUTICASONE/SALMETEROL 250-50 DISKUS 14 DOSE INH SCH ×2 (09:11→20:47)
[2017-02-21] MEDS: TOBRAMYCIN 0.3% OPH SOLN 5 ML BOTTLE LEFT EYE SCH ×2 (09:11→17:52)
[2017-02-21] MEDS: CARBIDOPA/LEVODOPA 25-100 MG TABLET PO SCH (09:11)
[2017-02-21] MEDS: CETIRIZINE 10 MG TABLET PO SCH (09:11)
[2017-02-21] MEDS: MAGNESIUM HYDROXIDE SUSP 30 ML UDCUP PO PRN (09:11)
[2017-02-21] MEDS: POLYETHYLENE GLYCOL POWDER 17 GM PACK PO SCH (09:11)
[2017-02-21] MEDS: TIMOLOL 0.5% OPH SOLN 5 ML BOTTLE BOTH EYES SCH (09:11)
[2017-02-21] MEDS: MEGESTROL 400 MG/10 ML UDCUP PO SCH ×2 (09:11→17:52)
[2017-02-21] MEDS: FLUTICASONE 50 MCG NASAL SPRAY 16 GM BOTTLE BOTH NARES SCH ×2 (09:11→17:52)
[2017-02-21] MEDS: MULTIVITAMIN (CENTRUM) TABLET PO SCH (09:27)
[2017-02-21] MEDS ORDERED: LACTULOSE 20 GM/30 ML UDCUP PO ONE ×2 (09:46→12:48)
[2017-02-21] MEDS: methylPREDNISolone SOD SUC 40 MG/1 ML VIAL IV SCH (10:57)
[2017-02-21] MEDS: TORSEMIDE 20 MG TABLET PO SCH (17:51)
[2017-02-21] MEDS: GABAPENTIN 300 MG CAPSULE PO SCH (20:44)
[2017-02-21] MEDS: traZODone 50 MG TABLET PO SCH (20:45)
[2017-02-21] MEDS: DONEPEZIL 5 MG TABLET PO SCH (20:45)
[2017-02-22] MEDS: methylPREDNISolone SOD SUC 40 MG/1 ML VIAL IV SCH ×2 (00:06→14:01)
[2017-02-22] MEDS: cefTRIAXone 500 MG in SYRINGE 1 EACH IV SCH (00:08)
[2017-02-22 03:12] LABS: Basophils # 0.1 10*3/uL (0.0-0.2); Basophils % 0.7 % (0.0-0.8); Eosinophils # 0.1 10*3/uL (0.0-0.87); Eosinophils % 0.7 % (0.00-10.9); Hematocrit 39.1 VOL% (35.7-47.0); Hemoglobin 12.7 GM/DL (12.0-16.0); Immature Granulocytes % 8.3 %; Immature Granulocytes Absolute 1.45 #; Lymphocytes # 2.1 10*3/uL (1.4-4.0); Lymphocytes % 11.9 % (21.3-54.2); Mean Corpuscular HGB Conc 32.5 GM/DL (32-36); Mean Corpuscular Hemoglobin 28 PG (27-34); Mean Corpuscular Volume 85.2 FL (87-102); Mean Platelet Volume 10.7 FL (9.6-12.0); Monocytes # 0.9 10*3/uL (0.11-0.8); Monocytes % 4.9 % (1.7-12.7); Neutrophils # 12.8 10*3/uL (1.4-7.4); Neutrophils % 73.5 % (38.7-73.9); Platelet Count 381 T/CUMM (130-400); Red Blood Count 4.59 MC/CUMM (3.8-5.5); Red Cell Distribution Width 15.9 % (9.3-17.3); White Blood Count 17.4 T/CUMM (4-12)
[2017-02-22] MEDS: FONDAPARINUX 2.5 MG/0.5 ML SYRINGE SUBCUT SCH (03:25)
[2017-02-22] MEDS: ALBUTEROL/IPRATROPIUM 3 ML NEB RESP TX SCH ×3 (03:41→14:00)
[2017-02-22 04:43] LABS: Band Neutrophils 3 % (0-10); Eosinophils 1 % (0-10); Lymphocytes 22 % (20-55); Myelocytes 2 %; Segmented Neutrophils 70 % (50-85); Total Cells Counted 100
[2017-02-22 04:44] LABS: Anisocytosis 1+; Platelet Estimate Normal
[2017-02-22] MEDS: LEVOTHYROXINE 100 MCG TABLET PO SCH (05:18)
[2017-02-22] MEDS: BUDESONIDE 0.25 MG/2 ML NEB RESP TX SCH (07:45)
[2017-02-22] MEDS: POLYETHYLENE GLYCOL POWDER 17 GM PACK PO SCH (08:00)
[2017-02-22] MEDS: TOBRAMYCIN 0.3% OPH SOLN 5 ML BOTTLE LEFT EYE SCH (08:00)
[2017-02-22] MEDS: CALCIUM (CITRATE) 200 MG TABLET PO SCH (08:01)
[2017-02-22] MEDS: MULTIVITAMIN (CENTRUM) TABLET PO SCH (08:01)
[2017-02-22] MEDS: POTASSIUM CHLORIDE 10 MEQ TABLET PO SCH (08:01)
[2017-02-22] MEDS: CITALOPRAM 40 MG TABLET PO SCH (08:01)
[2017-02-22] MEDS: FERROUS SULFATE 325 MG TABLET PO SCH (08:01)
[2017-02-22] MEDS: PANTOPRAZOLE 40 MG TABLET PO SCH (08:01)
[2017-02-22] MEDS: DOCUSATE SODIUM 100 MG CAPSULE PO SCH (08:01)
[2017-02-22] MEDS: CARBIDOPA/LEVODOPA 25-100 MG TABLET PO SCH (08:01)
[2017-02-22] MEDS: MEGESTROL 400 MG/10 ML UDCUP PO SCH (08:01)
[2017-02-22] MEDS: CETIRIZINE 10 MG TABLET PO SCH (08:01)
[2017-02-22] MEDS: TIMOLOL 0.5% OPH SOLN 5 ML BOTTLE BOTH EYES SCH (08:01)
[2017-02-22] MEDS: FLUTICASONE/SALMETEROL 250-50 DISKUS 14 DOSE INH SCH (08:02)
[2017-02-22] MEDS: FLUTICASONE 50 MCG NASAL SPRAY 16 GM BOTTLE BOTH NARES SCH (08:02)
[2017-02-22 08:41] VITALS: BP 154/95
== END 2017-02-22 08:15 | DRG 480 ==
LOC: EDBD → EDUNIT# → N.ED 11:17 → N.EDINP 14:49 → N.3E 16:25
PROVIDERS: ADMIT Family Medicine; ATTEND Family Medicine

== ENCOUNTER 2017-03-01 18:09 | Inpatient (IN) ==
[2017-03-01 20:52] LABS: PT Patient Result 10.3 SECS
[2017-03-01 20:57] LABS: Alanine Aminotransferase 15 U/L (13-56); Alkaline Phosphatase 96 U/L (45-117); Aspartate Amino Transferase 12 U/L (0-37); Blood Urea Nitrogen 77 MG/DL (7-18); Calcium 8.5 MG/DL (8.5-10.1); Glucose 110 MG/DL (74-106); Magnesium 2.9 MG/DL (1.8-2.4); Osmolality,Calculated 298.7 MOS/KG (273-304); Potassium 4.9 MMOL/L (3.5-5.1); Sodium 138 MMOL/L (136-145); Total Protein 6.3 G/DL (6.4-8.3); Troponin I Only < 0.015 NG/ML (0.00-0.045)
[2017-03-01 21:05] LABS: Basophils % 0.1 % (0.0-0.8); Hematocrit 19.7 VOL% (35.7-47.0); Immature Granulocytes % 7.2 %; Immature Granulocytes Absolute 1.88 #; Lymphocytes # 1.9 10*3/uL (1.4-4.0); Lymphocytes % 7.3 % (21.3-54.2); Mean Corpuscular HGB Conc 32.5 GM/DL (32-36); Mean Corpuscular Hemoglobin 28 PG (27-34); Mean Corpuscular Volume 87.2 FL (87-102); Mean Platelet Volume 11.4 FL (9.6-12.0); Monocytes # 1.2 10*3/uL (0.11-0.8); Monocytes % 4.6 % (1.7-12.7); NRBC # 0.05 10*3/uL; Neutrophils # 21.1 10*3/uL (1.4-7.4); Neutrophils % 80.8 % (38.7-73.9); Platelet Count 376 T/CUMM (130-400); Red Blood Count 2.26 MC/CUMM (3.8-5.5); Red Cell Distribution Width 17.5 % (9.3-17.3); White Blood Count 26.2 T/CUMM (4-12)
[2017-03-01 21:06] LABS: Hemoglobin 6.4 GM/DL (12.0-16.0)
[2017-03-01 22:01] LABS: ABG Base Excess 4.7 MMOL/L (-2.5-2.5); ABG Oxygen Saturation 93.4 % (95-100); ABG PCO2 42.1 MM HG (35-48); ABG PH 7.456 (7.35-7.45); ABG PO2 64.2 MM HG (80-95); ABG TCO2 30.3 MMOL/L (23-27)
[2017-03-01 22:02] LABS: Apearance,Urine CLEAR (Clear); Bilirubin,Urine Negative (Negative); Blood, Urine Negative (Negative); Glucose,Urine (UA) Negative (Negative); Hyaline Casts,Urine 2 /LPF (0-3); Ketones,Urine Negative (Negative); Mucus,Urine Occasional /LPF (Occasional); Nitrite,Urine Negative (Negative); Protein,Urine 30 MG/DL; Urine Color Yellow (Yellow); Urine Urobilinogen < 2.0 EU/DL (0.2-1.0); WBC,Urine 1 /HPF (0-6)
[2017-03-01] MEDS ORDERED: SODIUM CHLORIDE 0.9% 1,000 ML IV PRN (22:30)
[2017-03-02] MEDS ORDERED: FUROSEMIDE 40 MG/4 ML VIAL IV ONE (06:08)
[2017-03-02 07:41] LABS: Basophils % 0.1 % (0.0-0.8); Eosinophils % 0.1 % (0.00-10.9); Hematocrit 22.9 VOL% (35.7-47.0); Hematocrit 23.2 VOL% (35.7-47.0); Hemoglobin 7.5 GM/DL (12.0-16.0); Immature Granulocytes % 7.3 %; Immature Granulocytes Absolute 1.63 #; Lymphocytes # 2.3 10*3/uL (1.4-4.0); Lymphocytes % 10.1 % (21.3-54.2); Mean Corpuscular HGB Conc 32.8 GM/DL (32-36); Mean Corpuscular Hemoglobin 28 PG (27-34); Mean Corpuscular Volume 86.1 FL (87-102); Mean Platelet Volume 10.7 FL (9.6-12.0); Monocytes # 1.4 10*3/uL (0.11-0.8); NRBC # 0.05 10*3/uL; Neutrophils # 17.1 10*3/uL (1.4-7.4); Neutrophils % 76.4 % (38.7-73.9); Platelet Count 344 T/CUMM (130-400); Red Blood Count 2.66 MC/CUMM (3.8-5.5); Red Cell Distribution Width 16.7 % (9.3-17.3); White Blood Count 22.4 T/CUMM (4-12)
[2017-03-02 08:02] LABS: Giant Platelets Few; Hypochromasia 1+; Lymphocytes 11 % (20-55); Ovalocytes Slight; Platelet Estimate Adequate; Segmented Neutrophils 85 % (50-85); Total Cells Counted 100
[2017-03-02] MEDS: FUROSEMIDE 40 MG/4 ML VIAL IV SCH (09:19)
[2017-03-02] MEDS ORDERED: SKIN HEALING OINT (AQUAPHOR) 50 GM TUBE TOP PRN (12:06)
[2017-03-02] MEDS ORDERED: MAGNESIUM HYDROXIDE SUSP 30 ML UDCUP PO PRN (12:09)
[2017-03-02] MEDS: PANTOPRAZOLE 40 MG TABLET PO SCH (13:52)
[2017-03-02] MEDS: FERROUS SULFATE 325 MG TABLET PO SCH ×2 (13:52→21:48)
[2017-03-02] MEDS: ASPIRIN EC 81 MG TABLET PO SCH (13:52)
[2017-03-02] MEDS: methylPREDNISolone SOD SUC 40 MG/1 ML VIAL IV SCH ×2 (13:53→21:47)
[2017-03-02] MEDS: ALBUMIN 25% 25 GM in PREMIX 1 EACH IV SCH ×2 (13:59→21:50)
[2017-03-02] MEDS: BUDESONIDE 0.25 MG/2 ML NEB RESP TX SCH ×2 (14:45→20:26)
[2017-03-02] MEDS: ALBUTEROL/IPRATROPIUM 3 ML NEB RESP TX SCH ×2 (14:45→20:26)
[2017-03-02] MEDS: cefTRIAXone 500 MG in SYRINGE 1 EACH IV SCH (15:15)
[2017-03-02] MEDS: AZITHROMYCIN INJ 250 MG in SODIUM CHLORIDE 0.9% 150 ML IV SCH (15:21)
[2017-03-02] MEDS: FLUTICASONE 50 MCG NASAL SPRAY 16 GM BOTTLE BOTH NARES SCH (17:53)
[2017-03-02] MEDS: POTASSIUM CHLORIDE 10 MEQ TABLET PO SCH (17:53)
[2017-03-02] MEDS: DOCUSATE SODIUM 100 MG CAPSULE PO SCH (17:53)
[2017-03-02] MEDS: MEGESTROL 400 MG/10 ML UDCUP PO SCH (17:54)
[2017-03-02] MEDS: TOBRAMYCIN 0.3% OPH SOLN 5 ML BOTTLE LEFT EYE SCH (17:54)
[2017-03-02] MEDS: traZODone 50 MG TABLET PO SCH (21:48)
[2017-03-02] MEDS: GABAPENTIN 300 MG CAPSULE PO SCH (21:48)
[2017-03-03 00:51] LABS: Hematocrit 28.4 VOL% (35.7-47.0); Hemoglobin 9.1 GM/DL (12.0-16.0)
[2017-03-03] MEDS: ALBUTEROL/IPRATROPIUM 3 ML NEB RESP TX SCH ×4 (00:55→19:03)
[2017-03-03] MEDS: methylPREDNISolone SOD SUC 40 MG/1 ML VIAL IV SCH ×4 (04:24→23:11)
[2017-03-03] MEDS: ALBUMIN 25% 25 GM in PREMIX 1 EACH IV SCH ×4 (04:24→22:45)
[2017-03-03 05:20] LABS: Basophils % 0.2 % (0.0-0.8); Hematocrit 26.3 VOL% (35.7-47.0); Hemoglobin 8.8 GM/DL (12.0-16.0); Immature Granulocytes % 6.9 %; Immature Granulocytes Absolute 1.21 #; Lymphocytes # 1.5 10*3/uL (1.4-4.0); Lymphocytes % 8.2 % (21.3-54.2); Mean Corpuscular HGB Conc 33.5 GM/DL (32-36); Mean Corpuscular Hemoglobin 28 PG (27-34); Mean Corpuscular Volume 84.6 FL (87-102); Mean Platelet Volume 10.4 FL (9.6-12.0); Monocytes # 0.5 10*3/uL (0.11-0.8); NRBC # 0.07 10*3/uL; Neutrophils # 14.4 10*3/uL (1.4-7.4); Neutrophils % 81.7 % (38.7-73.9); Platelet Count 348 T/CUMM (130-400); Red Blood Count 3.11 MC/CUMM (3.8-5.5); Red Cell Distribution Width 16.7 % (9.3-17.3); White Blood Count 17.6 T/CUMM (4-12)
[2017-03-03 05:26] LABS: PT Patient Result 10.6 SECS; Partial Thromboplastin Time 29.6 SECS (0-40)
[2017-03-03 05:40] LABS: Band Neutrophils 3 % (0-10); Lymphocytes 11 % (20-55); Nucleated Red Blood Cells 1 (0-5); Segmented Neutrophils 84 % (50-85); Total Cells Counted 100
[2017-03-03 05:41] LABS: Giant Platelets Few; Hypochromasia 1+; Ovalocytes Slight; Platelet Estimate Adequate
[2017-03-03] MEDS: LEVOTHYROXINE 100 MCG TABLET PO SCH (05:47)
[2017-03-03 05:52] LABS: Albumin 3.1 G/DL (3.4-5.0); Bilirubin,Total 1.3 MG/DL (0.2-1.0); Calcium 8.3 MG/DL (8.5-10.1); Magnesium 2.6 MG/DL (1.8-2.4); Total Protein 6.1 G/DL (6.4-8.3)
[2017-03-03] MEDS ORDERED: BUPIVACAINE 0.25% 50 ML VIAL ONE (06:33)
[2017-03-03] MEDS ORDERED: SODIUM CHLORIDE 0.9% 1,000 ML IV PRN (07:07)
[2017-03-03] MEDS: BUDESONIDE 0.25 MG/2 ML NEB RESP TX SCH ×2 (07:24→19:03)
[2017-03-03] MEDS ORDERED: ETOMIDATE 20 MG/10 ML VIAL IV ONE ×2 (07:28→09:02)
[2017-03-03] MEDS ORDERED: PROPOFOL 200 MG/20 ML VIAL IV ONE ×2 (07:28→09:01)
[2017-03-03] MEDS ORDERED: CLINDAMYCIN INJ 900 MG in PREMIX 1 EACH IV ONE (08:00)
[2017-03-03] MEDS ORDERED: CLINDAMYCIN INJ 50 ML IV ONE (08:00)
[2017-03-03] MEDS ORDERED: BACITRACIN OINT 0.9 GM PACK TOP ONE (08:31)
[2017-03-03] MEDS ORDERED: HYDROmorphone 2 MG/1 ML VIAL IV PRN (08:59)
[2017-03-03] MEDS ORDERED: ONDANSETRON 4 MG/2 ML VIAL IV PRN (08:59)
[2017-03-03] MEDS ORDERED: GLUCAGON 1 MG VIAL IM PRN (08:59)
[2017-03-03] MEDS ORDERED: DEXTROSE 50% 25 GM/50 ML VIAL IV PRN (08:59)
[2017-03-03] MEDS ORDERED: LACTATED RINGERS 500 ML BAG IV ONE (09:02)
[2017-03-03] MEDS ORDERED: fentaNYL 100 MCG/2 ML VIAL ONE (09:02)
[2017-03-03] MEDS: oxyCODONE/ACETAMINOPHEN 5-325 MG TABLET PO PRN ×2 (11:01→23:11)
[2017-03-03] MEDS: CARBIDOPA/LEVODOPA 25-100 MG TABLET PO SCH (11:01)
[2017-03-03] MEDS: POTASSIUM CHLORIDE 10 MEQ TABLET PO SCH ×3 (11:01→18:47)
[2017-03-03] MEDS: ASPIRIN EC 81 MG TABLET PO SCH (11:01)
[2017-03-03] MEDS: FERROUS SULFATE 325 MG TABLET PO SCH ×3 (11:01→23:08)
[2017-03-03] MEDS: MULTIVITAMIN (CENTRUM) TABLET PO SCH (11:01)
[2017-03-03] MEDS: CITALOPRAM 40 MG TABLET PO SCH (11:01)
[2017-03-03] MEDS: DOCUSATE SODIUM 100 MG CAPSULE PO SCH ×3 (11:01→18:46)
[2017-03-03] MEDS: PANTOPRAZOLE 40 MG TABLET PO SCH (11:02)
[2017-03-03] MEDS: POLYETHYLENE GLYCOL POWDER 17 GM PACK PO SCH (11:02)
[2017-03-03] MEDS: TIMOLOL 0.5% OPH SOLN 5 ML BOTTLE BOTH EYES SCH (11:02)
[2017-03-03] MEDS: MEGESTROL 400 MG/10 ML UDCUP PO SCH ×2 (11:02→17:58)
[2017-03-03] MEDS: TOBRAMYCIN 0.3% OPH SOLN 5 ML BOTTLE LEFT EYE SCH ×2 (11:02→17:59)
[2017-03-03] MEDS: CETIRIZINE 10 MG TABLET PO SCH (11:02)
[2017-03-03] MEDS: FLUTICASONE 50 MCG NASAL SPRAY 16 GM BOTTLE BOTH NARES SCH ×2 (11:15→17:58)
[2017-03-03] MEDS: FUROSEMIDE 40 MG/4 ML VIAL IV SCH (11:16)
[2017-03-03] MEDS: cefTRIAXone 500 MG in SYRINGE 1 EACH IV SCH ×2 (11:19→11:44)
[2017-03-03] MEDS: INSULIN REGULAR 100 UNIT/ML SUBCUT SCH ×3 (13:18→22:46)
[2017-03-03] MEDS: AZITHROMYCIN INJ 250 MG in SODIUM CHLORIDE 0.9% 150 ML IV SCH (14:43)
[2017-03-03] MEDS: CLINDAMYCIN INJ 900 MG in PREMIX 1 EACH IV SCH (16:02)
[2017-03-03] MEDS: traZODone 50 MG TABLET PO SCH ×2 (22:45→23:09)
[2017-03-03] MEDS: GABAPENTIN 300 MG CAPSULE PO SCH ×2 (22:46→23:11)
[2017-03-04] MEDS: CLINDAMYCIN INJ 900 MG in PREMIX 1 EACH IV SCH (00:01)
[2017-03-04] MEDS: ALBUTEROL/IPRATROPIUM 3 ML NEB RESP TX SCH ×4 (00:31→20:08)
[2017-03-04] MEDS: methylPREDNISolone SOD SUC 40 MG/1 ML VIAL IV SCH ×3 (04:07→20:39)
[2017-03-04] MEDS: ALBUMIN 25% 25 GM in PREMIX 1 EACH IV SCH ×3 (04:08→20:39)
[2017-03-04 04:56] LABS: Basophils % 0.2 % (0.0-0.8); Eosinophils % 0.1 % (0.00-10.9); Hematocrit 25.7 VOL% (35.7-47.0); Hemoglobin 8.2 GM/DL (12.0-16.0); Immature Granulocytes % 5.6 %; Immature Granulocytes Absolute 0.92 #; Lymphocytes # 1.6 10*3/uL (1.4-4.0); Lymphocytes % 9.6 % (21.3-54.2); Mean Corpuscular HGB Conc 31.9 GM/DL (32-36); Mean Corpuscular Hemoglobin 28 PG (27-34); Mean Corpuscular Volume 88.3 FL (87-102); Mean Platelet Volume 11.1 FL (9.6-12.0); Monocytes # 1.1 10*3/uL (0.11-0.8); Monocytes % 6.5 % (1.7-12.7); NRBC # 0.03 10*3/uL; Neutrophils # 12.9 10*3/uL (1.4-7.4); Platelet Count 312 T/CUMM (130-400); Red Blood Count 2.91 MC/CUMM (3.8-5.5); Red Cell Distribution Width 17.9 % (9.3-17.3); White Blood Count 16.6 T/CUMM (4-12)
[2017-03-04 05:27] LABS: Calcium 8.6 MG/DL (8.5-10.1); Lymphocytes 10 % (20-55); Platelet Estimate Normal; Potassium 4.4 MMOL/L (3.5-5.1); Segmented Neutrophils 83 % (50-85); Total Cells Counted 100
[2017-03-04 05:30] LABS: Hypochromasia 1+; Target Cells Slight
[2017-03-04 05:31] LABS: Polychromasia Slight
[2017-03-04] MEDS: LEVOTHYROXINE 100 MCG TABLET PO SCH (06:12)
[2017-03-04] MEDS: BUDESONIDE 0.25 MG/2 ML NEB RESP TX SCH ×2 (07:08→20:08)
[2017-03-04] MEDS: INSULIN REGULAR 100 UNIT/ML SUBCUT SCH ×4 (09:24→21:01)
[2017-03-04] MEDS: CITALOPRAM 40 MG TABLET PO SCH (09:25)
[2017-03-04] MEDS: FERROUS SULFATE 325 MG TABLET PO SCH ×2 (09:25→20:38)
[2017-03-04] MEDS: MEGESTROL 400 MG/10 ML UDCUP PO SCH ×2 (09:25→16:22)
[2017-03-04] MEDS: MULTIVITAMIN (CENTRUM) TABLET PO SCH (09:25)
[2017-03-04] MEDS: FUROSEMIDE 40 MG/4 ML VIAL IV SCH (09:25)
[2017-03-04] MEDS: PANTOPRAZOLE 40 MG TABLET PO SCH (09:25)
[2017-03-04] MEDS: POTASSIUM CHLORIDE 10 MEQ TABLET PO SCH ×2 (09:25→16:22)
[2017-03-04] MEDS: DOCUSATE SODIUM 100 MG CAPSULE PO SCH ×2 (09:25→16:22)
[2017-03-04] MEDS: ASPIRIN EC 81 MG TABLET PO SCH (09:25)
[2017-03-04] MEDS: CARBIDOPA/LEVODOPA 25-100 MG TABLET PO SCH (09:25)
[2017-03-04] MEDS: CETIRIZINE 10 MG TABLET PO SCH (09:25)
[2017-03-04] MEDS: POLYETHYLENE GLYCOL POWDER 17 GM PACK PO SCH (09:26)
[2017-03-04] MEDS: FLUTICASONE 50 MCG NASAL SPRAY 16 GM BOTTLE BOTH NARES SCH ×2 (09:43→17:20)
[2017-03-04] MEDS: TOBRAMYCIN 0.3% OPH SOLN 5 ML BOTTLE LEFT EYE SCH ×2 (09:43→17:20)
[2017-03-04] MEDS: TIMOLOL 0.5% OPH SOLN 5 ML BOTTLE BOTH EYES SCH (09:43)
[2017-03-04] MEDS: cefTRIAXone 500 MG in SYRINGE 1 EACH IV SCH (13:25)
[2017-03-04] MEDS ORDERED: ACETAMINOPHEN/CODEINE 300-30 MG TABLET PO PRN (14:59)
[2017-03-04] MEDS: AZITHROMYCIN INJ 250 MG in SODIUM CHLORIDE 0.9% 150 ML IV SCH (15:03)
[2017-03-04] MEDS: SKIN HEALING OINT (AQUAPHOR) 50 GM TUBE TOP SCH (16:18)
[2017-03-04] MEDS: BACITRACIN OINT 0.9 GM PACK TOP SCH (16:19)
[2017-03-04] MEDS: MAGNESIUM HYDROXIDE SUSP 30 ML UDCUP PO SCH ×2 (16:20→23:13)
[2017-03-04] MEDS: traZODone 50 MG TABLET PO SCH (20:38)
[2017-03-04] MEDS: GABAPENTIN 300 MG CAPSULE PO SCH (21:01)
[2017-03-05] MEDS: ALBUTEROL/IPRATROPIUM 3 ML NEB RESP TX SCH ×4 (01:10→19:00)
[2017-03-05] MEDS: methylPREDNISolone SOD SUC 40 MG/1 ML VIAL IV SCH ×3 (04:20→21:39)
[2017-03-05] MEDS: ALBUMIN 25% 25 GM in PREMIX 1 EACH IV SCH ×3 (04:21→21:42)
[2017-03-05] MEDS: LEVOTHYROXINE 100 MCG TABLET PO SCH (06:19)
[2017-03-05] MEDS: MAGNESIUM HYDROXIDE SUSP 30 ML UDCUP PO SCH ×3 (06:19→23:05)
[2017-03-05] MEDS: ACETAMINOPHEN 325 MG TABLET PO PRN ×2 (06:31→21:39)
[2017-03-05] MEDS: BUDESONIDE 0.25 MG/2 ML NEB RESP TX SCH ×2 (07:15→19:00)
[2017-03-05 07:31] LABS: Basophils % 0.1 % (0.0-0.8); Eosinophils % 0.1 % (0.00-10.9); Hematocrit 28.8 VOL% (35.7-47.0); Hemoglobin 9.2 GM/DL (12.0-16.0); Immature Granulocytes % 6.2 %; Immature Granulocytes Absolute 1.06 #; Lymphocytes # 1.6 10*3/uL (1.4-4.0); Mean Corpuscular HGB Conc 31.9 GM/DL (32-36); Mean Corpuscular Hemoglobin 28 PG (27-34); Mean Corpuscular Volume 87.3 FL (87-102); Mean Platelet Volume 10.4 FL (9.6-12.0); Monocytes # 0.9 10*3/uL (0.11-0.8); Monocytes % 5.1 % (1.7-12.7); NRBC # 0.04 10*3/uL; Neutrophils # 13.6 10*3/uL (1.4-7.4); Neutrophils % 79.5 % (38.7-73.9); Platelet Count 360 T/CUMM (130-400); Red Cell Distribution Width 18.8 % (9.3-17.3); White Blood Count 17.2 T/CUMM (4-12)
[2017-03-05 08:02] LABS: Calcium 8.9 MG/DL (8.5-10.1); Osmolality,Calculated 306.8 MOS/KG (273-304); Potassium 4.2 MMOL/L (3.5-5.1)
[2017-03-05 08:35] LABS: Band Neutrophils 1 % (0-10); Lymphocytes 14 % (20-55); Platelet Estimate Normal; Segmented Neutrophils 85 % (50-85); Total Cells Counted 100
[2017-03-05] MEDS: SKIN HEALING OINT (AQUAPHOR) 50 GM TUBE TOP SCH (10:05)
[2017-03-05] MEDS: BACITRACIN OINT 0.9 GM PACK TOP SCH (10:05)
[2017-03-05] MEDS: INSULIN REGULAR 100 UNIT/ML SUBCUT SCH ×4 (10:45→21:40)
[2017-03-05] MEDS: TOBRAMYCIN 0.3% OPH SOLN 5 ML BOTTLE LEFT EYE SCH ×2 (10:45→17:05)
[2017-03-05] MEDS: TIMOLOL 0.5% OPH SOLN 5 ML BOTTLE BOTH EYES SCH (10:46)
[2017-03-05] MEDS: POTASSIUM CHLORIDE 10 MEQ TABLET PO SCH ×2 (10:47→17:10)
[2017-03-05] MEDS: PANTOPRAZOLE 40 MG TABLET PO SCH (10:52)
[2017-03-05] MEDS: DOCUSATE SODIUM 100 MG CAPSULE PO SCH ×2 (10:52→17:10)
[2017-03-05] MEDS: MEGESTROL 400 MG/10 ML UDCUP PO SCH ×2 (10:55→17:10)
[2017-03-05] MEDS: POLYETHYLENE GLYCOL POWDER 17 GM PACK PO SCH (10:56)
[2017-03-05] MEDS: CARBIDOPA/LEVODOPA 25-100 MG TABLET PO SCH (10:56)
[2017-03-05] MEDS: CETIRIZINE 10 MG TABLET PO SCH (10:56)
[2017-03-05] MEDS: MULTIVITAMIN (CENTRUM) TABLET PO SCH (10:57)
[2017-03-05] MEDS: ASPIRIN EC 81 MG TABLET PO SCH (10:57)
[2017-03-05] MEDS: FLUTICASONE 50 MCG NASAL SPRAY 16 GM BOTTLE BOTH NARES SCH ×2 (10:58→18:10)
[2017-03-05] MEDS: FERROUS SULFATE 325 MG TABLET PO SCH ×2 (10:58→21:39)
[2017-03-05] MEDS: FUROSEMIDE 40 MG/4 ML VIAL IV SCH (10:59)
[2017-03-05] MEDS: CITALOPRAM 40 MG TABLET PO SCH (10:59)
[2017-03-05] MEDS: cefTRIAXone 500 MG in SYRINGE 1 EACH IV SCH (13:11)
[2017-03-05] MEDS: AZITHROMYCIN INJ 250 MG in SODIUM CHLORIDE 0.9% 150 ML IV SCH (14:23)
[2017-03-05] MEDS: GABAPENTIN 300 MG CAPSULE PO SCH (21:40)
[2017-03-05] MEDS: traZODone 50 MG TABLET PO SCH (21:43)
[2017-03-06] MEDS: methylPREDNISolone SOD SUC 40 MG/1 ML VIAL IV SCH (04:34)
[2017-03-06] MEDS: MAGNESIUM HYDROXIDE SUSP 30 ML UDCUP PO SCH (06:36)
[2017-03-06] MEDS: LEVOTHYROXINE 100 MCG TABLET PO SCH (06:37)
[2017-03-06 07:23] LABS: Basophils % 0.1 % (0.0-0.8); Eosinophils % 0.1 % (0.00-10.9); Hematocrit 32.4 VOL% (35.7-47.0); Hemoglobin 10.4 GM/DL (12.0-16.0); Immature Granulocytes % 4.8 %; Immature Granulocytes Absolute 0.87 #; Lymphocytes # 1.5 10*3/uL (1.4-4.0); Lymphocytes % 8.3 % (21.3-54.2); Mean Corpuscular HGB Conc 32.1 GM/DL (32-36); Mean Corpuscular Hemoglobin 29 PG (27-34); Mean Platelet Volume 10.1 FL (9.6-12.0); Monocytes # 0.9 10*3/uL (0.11-0.8); Monocytes % 5.2 % (1.7-12.7); NRBC # 0.02 10*3/uL; Neutrophils # 14.6 10*3/uL (1.4-7.4); Neutrophils % 81.5 % (38.7-73.9); Platelet Count 386 T/CUMM (130-400); Red Blood Count 3.64 MC/CUMM (3.8-5.5); Red Cell Distribution Width 19.2 % (9.3-17.3)
[2017-03-06 08:04] LABS: Albumin 4.9 G/DL (3.4-5.0); Bilirubin,Total 1.5 MG/DL (0.2-1.0); Calcium 8.9 MG/DL (8.5-10.1); Osmolality,Calculated 306.8 MOS/KG (273-304); Potassium 4.5 MMOL/L (3.5-5.1)
[2017-03-06 08:07] LABS: Band Neutrophils 1 % (0-10); Lymphocytes 17 % (20-55); Segmented Neutrophils 78 % (50-85); Total Cells Counted 100
[2017-03-06 08:08] LABS: Giant Platelets Few; Hypochromasia 1+; Platelet Estimate Adequate
[2017-03-06] MEDS ORDERED: BISACODYL 10 MG SUPP RECTAL ONE (08:20)
[2017-03-06] MEDS: BUDESONIDE 0.25 MG/2 ML NEB RESP TX SCH (08:43)
[2017-03-06] MEDS: ALBUTEROL/IPRATROPIUM 3 ML NEB RESP TX SCH ×2 (08:43)
[2017-03-06] MEDS: POLYETHYLENE GLYCOL POWDER 17 GM PACK PO SCH (09:39)
[2017-03-06] MEDS: INSULIN REGULAR 100 UNIT/ML SUBCUT SCH (09:39)
[2017-03-06] MEDS: CARBIDOPA/LEVODOPA 25-100 MG TABLET PO SCH (09:40)
[2017-03-06] MEDS: FERROUS SULFATE 325 MG TABLET PO SCH (09:40)
[2017-03-06] MEDS: CITALOPRAM 40 MG TABLET PO SCH (09:41)
[2017-03-06] MEDS: ASPIRIN EC 81 MG TABLET PO SCH (09:44)
[2017-03-06] MEDS: POTASSIUM CHLORIDE 10 MEQ TABLET PO SCH (09:46)
[2017-03-06] MEDS: MEGESTROL 400 MG/10 ML UDCUP PO SCH (09:46)
[2017-03-06] MEDS: DOCUSATE SODIUM 100 MG CAPSULE PO SCH (09:48)
[2017-03-06] MEDS: FLUTICASONE 50 MCG NASAL SPRAY 16 GM BOTTLE BOTH NARES SCH (09:48)
[2017-03-06] MEDS: MULTIVITAMIN (CENTRUM) TABLET PO SCH (09:48)
[2017-03-06] MEDS: TIMOLOL 0.5% OPH SOLN 5 ML BOTTLE BOTH EYES SCH (09:48)
[2017-03-06] MEDS: TOBRAMYCIN 0.3% OPH SOLN 5 ML BOTTLE LEFT EYE SCH (09:49)
[2017-03-06] MEDS: PANTOPRAZOLE 40 MG TABLET PO SCH (09:50)
[2017-03-06] MEDS: CETIRIZINE 10 MG TABLET PO SCH (09:51)
[2017-03-06] MEDS ORDERED: FUROSEMIDE 40 MG TABLET PO SCH (10:00)
[2017-03-06 11:40] VITALS: BP 164/81
== END 2017-03-06 11:29 | disposition home or self-care (01) | DRG 570 ==
LOC: EDUNIT# → EDBD → N.ED 18:09 → N.EDINP 22:32 → N.TELES 23:14
PROVIDERS: ADMIT Internal Medicine; ATTEND Internal Medicine